=== PATIENT | female | born 1940 | race Caucasian/White ===

== ENCOUNTER 2017-11-11 09:00 | Outpatient (RCR) | payer OTHER, MEDICAID, SELFPAY ==
--- NOTE | 2017-09-27 11:06 | PT.OIE ---
Current Diagnoses Pain in left shoulder (09/26/17) Past Medical History (Last Updated 09/26/17 @ 10:28 by Tona Headley, PT) Arthritis (Acute) HTN (hypertension) (Acute) Seizure (Acute) Provider Visit Care Team Role Provider Type Gwendolyn Esipnosa PA-C Attending Provider Advanced Practioner Clinician Family Provider Primary Care Provider Specialty: Medical Address: [address] [place] [address], [facility] Email: [email or web address] Physical Therapy Initial Evaluation PT-OP-A Visit Information Start: 09/26/17 08:12 Freq: Status: Active Protocol: Document 09/26/17 09:08 [facility] (Rec: 09/27/17 11:06 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 (Rec: 09/27/17 11:06 [facility] [id number]) Current Condition History of Current Condition Onset Date End of Jun 2017 Current Complaints L shoulder pain History of Current Condition Pt reports shoulder pain starting after vacation at the end of Jun. She thinks it may have been caused from pulling her luggage, but is unsure. Pt reports it has improved recently, but still has some pain. Reports she has R knee soreness that has progressed buttock pain that was sharp for a while and R foot feels asleep. Imaging was done and was told it is a pinched nerve. Pt reports the pain has been okay, but numbness is still present. Prior Treatments and Tests X-ray revealing arthrtis per pt. Future Testing and Treatments Planned Possible ortho follow up for RLE. Treatment Goals Patient/Caregiver Goals Dec pain Prior Functional Status Baseline Function- ADL's Independent Baseline Function- Mobility Independent Current Functional Impairments (Reported) Functional Limitations- Other Difficulty sleeping on L shoulder PT-OP-C Subjective Start: 09/26/17 08:12 Freq: Status: Active Protocol: Document 09/26/17 09:08 [facility] (Rec: 09/27/17 11:06 [facility] [id number]) Patient Questionnaires Quick Dash- Upper Extremity Quick Dash UE Score 20.45 Quick Dash UE Impairment 20 to 39% Impaired (Score 20- 39) OP-PT Pain Assessment Pain Assessment Grid Paper Pain Assessment Grid Completed Yes Location Left Shoulder Intensity 2 Scale Used Numeric (1 - 10) Description With Movement Description- Other Annoying Frequency Intermittent Pain Duration during movement Pain Aggravating Factors Lifting Other Pain Aggravating Factors sleeping on it, lifting it to side Other Pain Alleviating Factors stop movement, used ice in past Home Pain Medication Use Pain Medications Used No PT-OP-J Posture/Palpation/Skin Start: 09/26/17 08:12 Freq: Status: Active Protocol: Document 09/26/17 09:08 [facility] (Rec: 09/26/17 10:27 [facility] [id number]) Posture Evaluation [facility] Postural Classification System [facility] Postural Classifications Anterior/Posterior Elbow Flexion Test 2 Comments Posture Comments Fwd head shoulders mild Palpation Assessment Location One Palpation Location L shoulder Palpation Findings Soft Tissue Tightness Tenderness Palpation Details UT, pec, LS, infraspinatus, teres PT-OP-K Range of Motion Start: 09/26/17 08:12 Freq: Status: Active Protocol: Document 09/26/17 09:08 [facility] (Rec: 09/26/17 10:27 [facility] [id number]) Shoulder Goniometric Range of Motion Shoulder Measured in Degrees Right Active Testing Position standing Flexion 170 Extension 60 Abduction 180 External Rotation at 90 degrees 90 Abduction Internal Rotation 70 Internal Rotation Behind Back (text) L2 Left Active Testing Position standing Flexion 151 Extension 60 Abduction 170 External Rotation at 90 degrees 70 Abduction Internal Rotation Behind Back (text) L2 PT-OP-L Special Tests Start: 09/26/17 08:12 Freq: Status: Active Protocol: Document 09/26/17 09:08 [facility] (Rec: 09/26/17 10:27 [facility] [id number]) Special Tests Neural Special Tests- Upper Body Other- 1 Test Results radial, median, ulnar n tention tests Neg (B) Comments R abd n tension 145, L 120 Other Special Tests Special Tests AC joint & impingment testing neg (B) & all tests neg on R; L (+) empty can, speeds, O' briens PT-OP-M Strength Start: 09/26/17 08:12 Freq: Status: Active Protocol: Document 09/26/17 09:08 [facility] (Rec: 09/26/17 10:27 [facility] [id number]) Shoulder Strength Shoulder Manual Muscle Testing Right Flexion 4 Good Extension 5 Normal Abduction (C5) 4- Good- External Rotation 4- Good- Internal Rotation 4 Good Comments pain with Abd, feels weak with RUE Left Flexion 4 Good Extension 4+ Good+ Abduction (C5) 4- Good- External Rotation 4- Good- Internal Rotation 5 Normal Comments pain Abd & ER PT-OP-Q Treatments Start: 09/26/17 08:12 Freq: Status: Active Protocol: Document 09/26/17 09:08 [facility] (Rec: 09/26/17 10:27 [facility] [id number]) Therapeutic Exercises Standing Exercises 3 Standing Exercise Name flex w/ retraction Side bilateral Reps/Minutes 15 2 Standing Exercise Name (B) ER Resistance L1 Reps/Minutes 15 1 Standing Exercise Name Shoulder ext Side bilateral Resistance L2 Reps/Minutes 15 PT-OP-T Assessment and Plan Start: 09/26/17 08:12 Freq: Status: Active Protocol: Document 09/26/17 09:08 [facility] (Rec: 09/27/17 11:06 [facility] [id number]) Physical Therapy Assessment Rehab Potential Rehabilitation Potential Excellent Evaluation Complexity Number of Personal Factors/Comorbidities 3 or More Number of Body Systems Impaired 3 Clinical Presentation at Evaluation Stable Impairments Impairments Pain Posture ROM Strength Goals Three Impairment pain Assisted Goal (LTG) 0/10 pain LTG Duration by 11/26/17 Two Impairment Strength Delivery Route Driver Goal (LTG) 5/5 strength BUEs to allow pt to do all normal activities without pain. LTG Duration by 11/26/17 One Impairment ROM Short Term Goal (STG) Pt will have normal ROM without pain to allow participation in daily tasks without pain. STG Duration By 10/28/17 Assessment Summary Assessment Pt presents with mild tendinosis and weakness from recent bout of pain. Pt is likely to continue to improve with strengthening & stretching exercises. Physical Therapy Plan Frequency and Duration Frequency of Treatment 2x/Week Duration of Treatment 2 months Plan of Care Start Date 09/26/17 Plan of Care End Date 11/26/17 Therapeutic Interventions Therapeutic Interventions Aquatic Therapy Home Exercise Program Joint Mobilizations Manual Therapy Patient/Caregiver Education Soft Tissue Mobilization Taping Therapeutic Exercises Modalities Cold Pack/Ice Massage Electric Stimulation Ultrasound Next Visit Focus/Plan Next Visit Plan Tband strengthening exercises & joint mobs Provider Signature Date
--- NOTE | 2017-09-27 11:07 | PT.OPPOC ---
Current Diagnoses Pain in left shoulder (09/26/17) Provider Visit Care Team Role Provider Type Gwendolyn Espinosa PA-C Attending Provider Advanced Practioner Clinician Family Provider Primary Care Provider Specialty: Medical Address: [address] [place] [address], [id number] Email: [email or web address] Plan Of Care PT-OP-T Assessment and Plan Start: 09/26/17 08:12 Freq: Status: Active Protocol: Document 09/26/17 09:08 [facility] (Rec: 09/27/17 11:06 [facility] [id number]) Physical Therapy Assessment Rehab Potential Rehabilitation Potential Excellent Evaluation Complexity Number of Personal Factors/Comorbidities 3 or More Number of Body Systems Impaired 3 Clinical Presentation at Evaluation Stable Impairments Impairments Pain Posture ROM Strength Goals Three Impairment pain Correction Goal (LTG) 0/10 pain LTG Duration by 11/26/17 Two Impairment Strength Correction Goal (LTG) 5/5 strength BUEs to allow pt to do all normal activities without pain. LTG Duration by 11/26/17 One Impairment ROM Short Term Goal (STG) Pt will have normal ROM without pain to allow participation in daily tasks without pain. STG Duration By 10/28/17 Assessment Summary Assessment Pt presents with mild tendinosis and weakness from recent bout of pain. Pt is likely to continue to improve with strengthening & stretching exercises. Physical Therapy Plan Frequency and Duration Frequency of Treatment 2x/Week Duration of Treatment 2 months Plan of Care Start Date 09/26/17 Plan of Care End Date 11/26/17 Therapeutic Interventions Therapeutic Interventions Aquatic Therapy Home Exercise Program Joint Mobilizations Manual Therapy Patient/Caregiver Education Soft Tissue Mobilization Taping Therapeutic Exercises Modalities Cold Pack/Ice Massage Electric Stimulation Ultrasound Next Visit Focus/Plan Next Visit Plan Tband strengthening exercises & joint mobs Plan of Care Dates Plan of Care Start Date 09/26/17 Plan of Care End Date 11/26/17 Please Sign and Return: I have reviewed this Plan of Care and certify that the skilled therapy services above are required to meet the patient???s needs. Physician Signature Date Printed Name and Credentials
--- NOTE | 2017-10-01 11:18 | PT.OTN ---
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 She thinks it may have been caused from pulling her luggage, but is unsure. Pt reports it has improved recently, but still has some pain. Reports she has R knee soreness that has progressed buttock pain that was sharp for a while and R foot feels asleep. Imaging was done and was told it is a pinched nerve. Pt reports the pain has been okay, but numbness is still present. Prior Treatments and Tests X-ray revealing arthrtis per pt. Future Testing and Treatments Planned Possible ortho follow up for RLE. Treatment Goals Patient/Caregiver Goals Dec pain Prior Functional Status Baseline Function- ADL's Independent Baseline Function- Mobility Independent Current Functional Impairments (Reported) Functional Limitations- Other Difficulty sleeping on L shoulder PT-OP-C Subjective Start: 09/26/17 08:12 Freq: Status: Active Protocol: Document 10/01/17 10:31 [facility] (Rec: 10/01/17 11:12 [facility] [id number]) OP-PT Subjective Patient Comments Patient Comments Reports compliance with HEP except for this weekend. PT-OP-J Posture/Palpation/Skin Start: 09/26/17 08:12 Freq: Status: Active Protocol: Document 09/26/17 09:08 [facility] (Rec: 09/26/17 10:27 [facility] [id number]) Posture Evaluation [facility] Postural Classification System [facility] Postural Classifications Anterior/Posterior Elbow Flexion Test 2 Comments Posture Comments Fwd head shoulders mild Palpation Assessment Location One Palpation Location L shoulder Palpation Findings Soft Tissue Tightness Tenderness Palpation Details UT, pec, LS, infraspinatus, teres PT-OP-K Range of Motion Start: 09/26/17 08:12 Freq: Status: Active Protocol: Document 09/26/17 09:08 [facility] (Rec: 09/26/17 10:27 [facility] [id number]) Shoulder Goniometric Range of Motion Shoulder Measured in Degrees Right Active Testing Position standing Flexion 170 Extension 60 Abduction 180 External Rotation at 90 degrees 90 Abduction Internal Rotation 70 Internal Rotation Behind Back (text) L2 Left Active Testing Position standing Flexion 151 Extension 60 Abduction 170 External Rotation at 90 degrees 70 Abduction Internal Rotation Behind Back (text) L2 PT-OP-L Special Tests Start: 09/26/17 08:12 Freq: Status: Active Protocol: Document 09/26/17 09:08 [facility] (Rec: 09/26/17 10:27 [facility] [id number]) Special Tests Neural Special Tests- Upper Body Other- 1 Test Results radial, median, ulnar n tention tests Neg (B) Comments R abd n tension 145, L 120 Other Special Tests Special Tests AC joint & impingment testing neg (B) & all tests neg on R; L (+) empty can, speeds, O' briens PT-OP-M Strength Start: 09/26/17 08:12 Freq: Status: Active Protocol: Document 09/26/17 09:08 [facility] (Rec: 09/26/17 10:27 [facility] [id number]) Shoulder Strength Shoulder Manual Muscle Testing Right Flexion 4 Good Extension 5 Normal Abduction (C5) 4- Good- External Rotation 4- Good- Internal Rotation 4 Good Comments pain with Abd, feels weak with RUE Left Flexion 4 Good Extension 4+ Good+ Abduction (C5) 4- Good- External Rotation 4- Good- Internal Rotation 5 Normal Comments pain Abd & ER PT-OP-Q Treatments Start: 09/26/17 08:12 Freq: Status: Active Protocol: Document 10/01/17 10:31 [facility] (Rec: 10/01/17 10:49 [facility] [id number]) Therapeutic Exercises Prone Exercises 2 Prone Exercise Name scaption on tball Resistance 1# Reps/Minutes 2x10 1 Prone Exercise Name Habd on tball Resistance 1# Reps/Minutes 2x10 Standing Exercises 5 Standing Exercise Name LS stretch Side bilateral 4 Standing Exercise Name UT stretch Reps/Minutes 30 sec holds 3 Standing Exercise Name flex w/ retraction Side bilateral Reps/Minutes 2x10 2 Standing Exercise Name (B) ER Resistance L1 Reps/Minutes 2x10 1 Standing Exercise Name Shoulder ext Side bilateral Resistance L2 Reps/Minutes 2x10 Manual Therapy Treatment Soft Tissue Mobilization 1 Body Location UT/LS Mobilization Type Rolling Intensity/Depth Moderate Body Position Supine Joint Mobilizations 2 Joint GH Direction post, inf & distraction Grade III Body Position Supine 1 Joint AC Direction ventral Grade II PT-OP-T Assessment and Plan Start: 09/26/17 08:12 Freq: Status: Active Protocol: Document 10/01/17 10:31 [facility] (Rec: 10/01/17 10:49 [facility] [id number]) Physical Therapy Assessment Assessment Summary Assessment Min cueing w/HEP and required cueing for exercises to maintain neutral scap positioning. Physical Therapy Plan Frequency and Duration Frequency of Treatment 2x/Week Duration of Treatment 2 months Plan of Care Start Date 09/26/17 Plan of Care End Date 11/26/17 Next Visit Focus/Plan Next Visit Plan Review new exercises
--- NOTE | 2017-10-10 10:25 | PT.OTN ---
Current Diagnoses Pain in left shoulder (10/10/17) Physical Therapy Treatment Note PT-OP-A Visit Information Start: 09/26/17 08:12 Freq: Status: Active Protocol: Document 10/10/17 09:40 [facility] (Rec: 10/10/17 10:24 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 (Rec: 09/27/17 11:06 [facility] [id number]) Current Condition History of Current Condition Onset Date End of Jun 2017 Current Complaints L shoulder pain History of Current Condition Pt reports shoulder pain starting after vacation at the end of Jun. She thinks it may have been caused from pulling her luggage, but is unsure. Pt reports it has improved recently, but still has some pain. Reports she has R knee soreness that has progressed buttock pain that was sharp for a while and R foot feels asleep. Imaging was done and was told it is a pinched nerve. Pt reports the pain has been okay, but numbness is still present. Prior Treatments and Tests X-ray revealing arthrtis per pt. Future Testing and Treatments Planned Possible ortho follow up for RLE. Treatment Goals Patient/Caregiver Goals Dec pain Prior Functional Status Baseline Function- ADL's Independent Baseline Function- Mobility Independent Current Functional Impairments (Reported) Functional Limitations- Other Difficulty sleeping on L shoulder PT-OP-C Subjective Start: 09/26/17 08:12 Freq: Status: Active Protocol: Document 10/10/17 09:40 [facility] (Rec: 10/10/17 10:24 [facility] [id number]) OP-PT Subjective Patient Comments Patient Comments Feeling better with massage. PT-OP-J Posture/Palpation/Skin Start: 09/26/17 08:12 Freq: Status: Active Protocol: Document 09/26/17 09:08 [facility] (Rec: 09/26/17 10:27 [facility] [id number]) Posture Evaluation [facility] Postural Classification System [facility] Postural Classifications Anterior/Posterior Elbow Flexion Test 2 Comments Posture Comments Fwd head shoulders mild Palpation Assessment Location One Palpation Location L shoulder Palpation Findings Soft Tissue Tightness Tenderness Palpation Details UT, pec, LS, infraspinatus, teres PT-OP-K Range of Motion Start: 09/26/17 08:12 Freq: Status: Active Protocol: Document 09/26/17 09:08 [facility] (Rec: 09/26/17 10:27 [facility] [id number]) Shoulder Goniometric Range of Motion Shoulder Measured in Degrees Right Active Testing Position standing Flexion 170 Extension 60 Abduction 180 External Rotation at 90 degrees 90 Abduction Internal Rotation 70 Internal Rotation Behind Back (text) L2 Left Active Testing Position standing Flexion 151 Extension 60 Abduction 170 External Rotation at 90 degrees 70 Abduction Internal Rotation Behind Back (text) L2 PT-OP-L Special Tests Start: 09/26/17 08:12 Freq: Status: Active Protocol: Document 09/26/17 09:08 [facility] (Rec: 09/26/17 10:27 [facility] [id number]) Special Tests Neural Special Tests- Upper Body Other- 1 Test Results radial, median, ulnar n tention tests Neg (B) Comments R abd n tension 145, L 120 Other Special Tests Special Tests AC joint & impingment testing neg (B) & all tests neg on R; L (+) empty can, speeds, O' briens PT-OP-M Strength Start: 09/26/17 08:12 Freq: Status: Active Protocol: Document 09/26/17 09:08 [facility] (Rec: 09/26/17 10:27 [facility] [id number]) Shoulder Strength Shoulder Manual Muscle Testing Right Flexion 4 Good Extension 5 Normal Abduction (C5) 4- Good- External Rotation 4- Good- Internal Rotation 4 Good Comments pain with Abd, feels weak with RUE Left Flexion 4 Good Extension 4+ Good+ Abduction (C5) 4- Good- External Rotation 4- Good- Internal Rotation 5 Normal Comments pain Abd & ER PT-OP-Q Treatments Start: 09/26/17 08:12 Freq: Status: Active Protocol: Document 10/10/17 09:40 [facility] (Rec: 10/10/17 10:24 [facility] [id number]) Therapeutic Exercises Prone Exercises 3 Prone Exercise Name 90/90 ER tball Resistance 1# Reps/Minutes 2x10 2 Prone Exercise Name scaption on tball Resistance 1# Reps/Minutes 2x10 1 Prone Exercise Name Habd on tball Resistance 1# Reps/Minutes 2x10 Standing Exercises 6 Standing Exercise Name Shoulder IR Side left Resistance L2 Reps/Minutes 2x10 5 Standing Exercise Name LS stretch Side bilateral 4 Standing Exercise Name UT stretch Reps/Minutes 30 sec holds Manual Therapy Treatment Soft Tissue Mobilization 1 Body Location UT/LS Mobilization Type Rolling Intensity/Depth Moderate Body Position Supine Joint Mobilizations 2 Joint GH Direction post, inf & distraction Grade III Body Position Supine 1 Joint AC Direction ventral Grade II PT-OP-T Assessment and Plan Start: 09/26/17 08:12 Freq: Status: Active Protocol: Document 10/10/17 09:40 [facility] (Rec: 10/10/17 10:24 [facility] [id number]) Physical Therapy Assessment Assessment Summary Assessment Pt did well with exercises and required min cueing. Added new exercises from last session to HEP. Physical Therapy Plan Frequency and Duration Frequency of Treatment 2x/Week Duration of Treatment 2 months Plan of Care Start Date 09/26/17 Plan of Care End Date 11/26/17 Next Visit Focus/Plan Next Visit Plan Cont to work on full ROM & abd without pain Please Sign and Return: I have reviewed this Plan of Care and certify that the skilled therapy services above are required to meet the patient???s needs. Physician Signature Date Printed Name and Credentials Clinical Instructor Signature Printed Name and Credentials
--- NOTE | 2017-10-15 13:43 | PT.OTN ---
Current Diagnoses Pain in left shoulder (10/15/17) Physical Therapy Treatment Note PT-OP-A Visit Information Start: 09/26/17 08:12 Freq: Status: Active Protocol: Document 10/15/17 13:02 [facility] (Rec: 10/15/17 13:43 [facility] [id number]) Out-Patient Physical Therapy Visit Information Visit Information Visit Type Treatment Note Visit Note 34PT visit this year Visit Start Time 13:00 Visit Stop Time 13:40 Total Visit Minutes 40 Visit Number 4 Gcode Number of POKER DEALER Visits 0 PT-OP-B Current Condition Start: 09/26/17 08:12 Freq: Status: Active Protocol: Document 09/26/17 09:08 [facility] (Rec: 09/27/17 11:06 [facility] [id number]) Current Condition History of Current Condition Onset Date End of Jun 2017 Current Complaints L shoulder pain History of Current Condition Pt reports shoulder pain starting after vacation at the end of Jun. She thinks it may have been caused from pulling her luggage, but is unsure. Pt reports it has improved recently, but still has some pain. Reports she has R knee soreness that has progressed buttock pain that was sharp for a while and R foot feels asleep. Imaging was done and was told it is a pinched nerve. Pt reports the pain has been okay, but numbness is still present. Prior Treatments and Tests X-ray revealing arthrtis per pt. Future Testing and Treatments Planned Possible ortho follow up for RLE. Treatment Goals Patient/Caregiver Goals Dec pain Prior Functional Status Baseline Function- ADL's Independent Baseline Function- Mobility Independent Current Functional Impairments (Reported) Functional Limitations- Other Difficulty sleeping on L shoulder PT-OP-C Subjective Start: 09/26/17 08:12 Freq: Status: Active Protocol: Document 10/15/17 13:02 [facility] (Rec: 10/15/17 13:43 [facility] [id number]) OP-PT Subjective Patient Comments Patient Comments Overall feeling better. Notes pain is less. Did not do exercises this weekend. PT-OP-J Posture/Palpation/Skin Start: 09/26/17 08:12 Freq: Status: Active Protocol: Document 09/26/17 09:08 [facility] (Rec: 09/26/17 10:27 [facility] [id number]) Posture Evaluation Lorean Postural Classification System [place] Postural Classifications Anterior/Posterior Elbow Flexion Test 2 Comments Posture Comments Fwd head shoulders mild Palpation Assessment Location One Palpation Location L shoulder Palpation Findings Soft Tissue Tightness Tenderness Palpation Details UT, pec, LS, infraspinatus, teres PT-OP-K Range of Motion Start: 09/26/17 08:12 Freq: Status: Active Protocol: Document 09/26/17 09:08 [facility] (Rec: 09/26/17 10:27 [facility] [id number]) Shoulder Goniometric Range of Motion Shoulder Measured in Degrees Right Active Testing Position standing Flexion 170 Extension 60 Abduction 180 External Rotation at 90 degrees 90 Abduction Internal Rotation 70 Internal Rotation Behind Back (text) L2 Left Active Testing Position standing Flexion 151 Extension 60 Abduction 170 External Rotation at 90 degrees 70 Abduction Internal Rotation Behind Back (text) L2 PT-OP-L Special Tests Start: 09/26/17 08:12 Freq: Status: Active Protocol: Document 09/26/17 09:08 [facility] (Rec: 09/26/17 10:27 [facility] [id number]) Special Tests Neural Special Tests- Upper Body Other- 1 Test Results radial, median, ulnar n tention tests Neg (B) Comments R abd n tension 145, L 120 Other Special Tests Special Tests AC joint & impingment testing neg (B) & all tests neg on R; L (+) empty can, speeds, O' briens PT-OP-M Strength Start: 09/26/17 08:12 Freq: Status: Active Protocol: Document 09/26/17 09:08 [facility] (Rec: 09/26/17 10:27 [facility] [id number]) Shoulder Strength Shoulder Manual Muscle Testing Right Flexion 4 Good Extension 5 Normal Abduction (C5) 4- Good- External Rotation 4- Good- Internal Rotation 4 Good Comments pain with Abd, feels weak with RUE Left Flexion 4 Good Extension 4+ Good+ Abduction (C5) 4- Good- External Rotation 4- Good- Internal Rotation 5 Normal Comments pain Abd & ER PT-OP-Q Treatments Start: 09/26/17 08:12 Freq: Status: Active Protocol: Document 10/15/17 13:02 [facility] (Rec: 10/15/17 13:43 [facility] [id number]) Therapeutic Exercises Prone Exercises 3 Prone Exercise Name 90/90 ER tball Resistance 1# Reps/Minutes 2x10 2 Prone Exercise Name scaption on tball Resistance 1# Reps/Minutes 2x10 1 Prone Exercise Name Habd on tball Resistance 2# Reps/Minutes 2x10 Sidelying Exercises 1 Sidelying Exercise Name abd Side left Resistance 1# Reps/Minutes 20 Standing Exercises 7 Standing Exercise Name abd Resistance L1 Reps/Minutes 15 B 5 Standing Exercise Name LS stretch Side bilateral 4 Standing Exercise Name UT stretch Reps/Minutes 30 sec holds 3 Standing Exercise Name flex w/ retraction Side bilateral Reps/Minutes 10 2 Standing Exercise Name (B) ER Resistance L1 Reps/Minutes 2x10 Manual Therapy Treatment Soft Tissue Mobilization 1 Body Location UT/LS Mobilization Type Rolling Intensity/Depth Moderate Body Position Supine Joint Mobilizations 2 Joint GH Direction post, inf & distraction Grade III Body Position Supine PT-OP-T Assessment and Plan Start: 09/26/17 08:12 Freq: Status: Active Protocol: Document 10/15/17 13:02 [facility] (Rec: 10/15/17 13:43 [facility] [id number]) Physical Therapy Assessment Goals Three Impairment pain Marine Fitter Goal (LTG) 0/10 pain LTG Duration by 11/26/17 Two Impairment Strength Fpc Goal (LTG) 5/5 strength BUEs to allow pt to do all normal activities without pain. LTG Duration by 11/26/17 One Impairment ROM Short Term Goal (STG) Pt will have normal ROM without pain to allow participation in daily tasks without pain. STG Duration By 10/28/17 Assessment Summary Assessment Improved PROM to WNL after manual. Cont tightness & elevation of L sided shoulder girdle. Some pain when trying 2 lbs for s.l abd but no pain with 1 # and cueing. Physical Therapy Plan Frequency and Duration Frequency of Treatment 2x/Week Duration of Treatment 2 months Plan of Care Start Date 09/26/17 Plan of Care End Date 11/26/17 Next Visit Focus/Plan Next Note Type Treatment Note Next Visit Plan Cont to work on full ROM & abd without pain Please Sign and Return: I have reviewed this Plan of Care and certify that the skilled therapy services above are required to meet the patient???s needs. Physician Signature Date Printed Name and Credentials Clinical Instructor Signature Printed Name and Credentials
--- NOTE | 2017-10-17 15:12 | PT.OTN ---
Current Diagnoses Pain in left shoulder (10/17/17) Physical Therapy Treatment Note PT-OP-A Visit Information Start: 09/26/17 08:12 Freq: Status: Active Protocol: Document 10/17/17 14:32 [facility] (Rec: 10/17/17 15:12 [facility] [id number]) Out-Patient Physical Therapy Visit Information Visit Information Visit Type Treatment Note Visit Note 5 PT visit this year Visit Start Time 14:30 Visit Stop Time 15:10 Total Visit Minutes 40 Visit Number 5 Gcode Number of COUNCIL MEMBER Visits 0 PT-OP-B Current Condition Start: 09/26/17 08:12 Freq: Status: Active Protocol: Document 09/26/17 09:08 [facility] (Rec: 09/27/17 11:06 [facility] [id number]) Current Condition History of Current Condition Onset Date End of Jun 2017 Current Complaints L shoulder pain History of Current Condition Pt reports shoulder pain starting after vacation at the end of Jun. She thinks it may have been caused from pulling her luggage, but is unsure. Pt reports it has improved recently, but still has some pain. Reports she has R knee soreness that has progressed buttock pain that was sharp for a while and R foot feels asleep. Imaging was done and was told it is a pinched nerve. Pt reports the pain has been okay, but numbness is still present. Prior Treatments and Tests X-ray revealing arthrtis per pt. Future Testing and Treatments Planned Possible ortho follow up for RLE. Treatment Goals Patient/Caregiver Goals Dec pain Prior Functional Status Baseline Function- ADL's Independent Baseline Function- Mobility Independent Current Functional Impairments (Reported) Functional Limitations- Other Difficulty sleeping on L shoulder PT-OP-C Subjective Start: 09/26/17 08:12 Freq: Status: Active Protocol: Document 10/17/17 14:32 [facility] (Rec: 10/17/17 15:12 [facility] [id number]) OP-PT Subjective Patient Comments Patient Comments Compliance with HEP since lasst visit PT-OP-J Posture/Palpation/Skin Start: 09/26/17 08:12 Freq: Status: Active Protocol: Document 09/26/17 09:08 [facility] (Rec: 09/26/17 10:27 [facility] [id number]) Posture Evaluation Lorena Postural Classification System [place]orena Postural Classifications Anterior/Posterior Elbow Flexion Test 2 Comments Posture Comments Fwd head shoulders mild Palpation Assessment Location One Palpation Location L shoulder Palpation Findings Soft Tissue Tightness Tenderness Palpation Details UT, pec, LS, infraspinatus, teres PT-OP-K Range of Motion Start: 09/26/17 08:12 Freq: Status: Active Protocol: Document 09/26/17 09:08 [facility] (Rec: 09/26/17 10:27 [facility] [id number]) Shoulder Goniometric Range of Motion Shoulder Measured in Degrees Right Active Testing Position standing Flexion 170 Extension 60 Abduction 180 External Rotation at 90 degrees 90 Abduction Internal Rotation 70 Internal Rotation Behind Back (text) L2 Left Active Testing Position standing Flexion 151 Extension 60 Abduction 170 External Rotation at 90 degrees 70 Abduction Internal Rotation Behind Back (text) L2 PT-OP-L Special Tests Start: 09/26/17 08:12 Freq: Status: Active Protocol: Document 09/26/17 09:08 [facility] (Rec: 09/26/17 10:27 [facility] [id number]) Special Tests Neural Special Tests- Upper Body Other- 1 Test Results radial, median, ulnar n tention tests Neg (B) Comments R abd n tension 145, L 120 Other Special Tests Special Tests AC joint & impingment testing neg (B) & all tests neg on R; L (+) empty can, speeds, O' briens PT-OP-M Strength Start: 09/26/17 08:12 Freq: Status: Active Protocol: Document 09/26/17 09:08 [facility] (Rec: 09/26/17 10:27 [facility] [id number]) Shoulder Strength Shoulder Manual Muscle Testing Right Flexion 4 Good Extension 5 Normal Abduction (C5) 4- Good- External Rotation 4- Good- Internal Rotation 4 Good Comments pain with Abd, feels weak with RUE Left Flexion 4 Good Extension 4+ Good+ Abduction (C5) 4- Good- External Rotation 4- Good- Internal Rotation 5 Normal Comments pain Abd & ER PT-OP-Q Treatments Start: 09/26/17 08:12 Freq: Status: Active Protocol: Document 10/17/17 14:32 [facility] (Rec: 10/17/17 15:12 [facility] [id number]) Therapeutic Exercises Prone Exercises 3 Prone Exercise Name 90/90 ER tball Resistance 1# Reps/Minutes 2x10 2 Prone Exercise Name scaption on tball Resistance 1# Reps/Minutes 2x10 1 Prone Exercise Name Habd on tball Resistance 2# Reps/Minutes 2x10 Sidelying Exercises 1 Sidelying Exercise Name abd Side left Resistance 2# Reps/Minutes 20 Standing Exercises 7 Standing Exercise Name abd Resistance L1 Reps/Minutes 20 3 Standing Exercise Name flex w/ retraction Side bilateral Reps/Minutes 20 2 Standing Exercise Name (B) ER Resistance L1 Reps/Minutes 2x10 Manual Therapy Treatment Soft Tissue Mobilization 1 Body Location UT/LS/scalenes & pec Mobilization Type Rolling Intensity/Depth Moderate Body Position Supine Joint Mobilizations 2 Joint GH Direction post, inf & distraction Grade III Body Position Supine Manual Techniques 1 Type flex & abd stretch PT-OP-T Assessment and Plan Start: 09/26/17 08:12 Freq: Status: Active Protocol: Document 10/17/17 14:32 [facility] (Rec: 10/17/17 15:12 [facility] [id number]) Physical Therapy Assessment Assessment Summary Assessment Cont to improve with strength & improving scapulohumeral mechanics. Physical Therapy Plan Frequency and Duration Frequency of Treatment 2x/Week Duration of Treatment 2 months Plan of Care Start Date 09/26/17 Plan of Care End Date 11/26/17 Next Visit Focus/Plan Next Note Type Treatment Note Next Visit Plan Cont to work on full ROM & abd without pain Please Sign and Return: I have reviewed this Plan of Care and certify that the skilled therapy services above are required to meet the patient?s needs. Physician Signature Date Printed Name and Credentials Clinical Instructor Signature Printed Name and Credentials
--- NOTE | 2017-10-22 11:15 | PT.OTN ---
Current Diagnoses Pain in left shoulder (10/22/17) Physical Therapy Treatment Note PT-OP-A Visit Information Start: 09/26/17 08:12 Freq: Status: Active Protocol: Document 10/22/17 10:30 [facility] (Rec: 10/22/17 11:15 [facility] [id number]) Out-Patient Physical Therapy Visit Information Visit Information Visit Type Treatment Note Visit Note 6 PT visit this year Visit Start Time 10:30 Visit Stop Time 11:10 Total Visit Minutes 40 Visit Number 6 Gcode Number of ASSET CARD CLERK Visits 0 PT-OP-B Current Condition Start: 09/26/17 08:12 Freq: Status: Active Protocol: Document 09/26/17 09:08 [facility] (Rec: 09/27/17 11:06 [facility] [id number]) Current Condition History of Current Condition Onset Date End of Jun 2017 Current Complaints L shoulder pain History of Current Condition Pt reports shoulder pain starting after vacation at the end of Jun. She thinks it may have been caused from pulling her luggage, but is unsure. Pt reports it has improved recently, but still has some pain. Reports she has R knee soreness that has progressed buttock pain that was sharp for a while and R foot feels asleep. Imaging was done and was told it is a pinched nerve. Pt reports the pain has been okay, but numbness is still present. Prior Treatments and Tests X-ray revealing arthrtis per pt. Future Testing and Treatments Planned Possible ortho follow up for RLE. Treatment Goals Patient/Caregiver Goals Dec pain Prior Functional Status Baseline Function- ADL's Independent Baseline Function- Mobility Independent Current Functional Impairments (Reported) Functional Limitations- Other Difficulty sleeping on L shoulder PT-OP-C Subjective Start: 09/26/17 08:12 Freq: Status: Active Protocol: Document 10/22/17 10:30 [facility] (Rec: 10/22/17 11:15 [facility] [id number]) OP-PT Subjective Patient Comments Patient Comments Reports soreness yesterday w/ abd after exercises. Notes the soreness seems to stay there. PT-OP-J Posture/Palpation/Skin Start: 09/26/17 08:12 Freq: Status: Active Protocol: Document 09/26/17 09:08 [facility] (Rec: 09/26/17 10:27 [facility] [id number]) Posture Evaluation [place]orena Postural Classification System [place] Postural Classifications Anterior/Posterior Elbow Flexion Test 2 Comments Posture Comments Fwd head shoulders mild Palpation Assessment Location One Palpation Location L shoulder Palpation Findings Soft Tissue Tightness Tenderness Palpation Details UT, pec, LS, infraspinatus, teres PT-OP-K Range of Motion Start: 09/26/17 08:12 Freq: Status: Active Protocol: Document 09/26/17 09:08 [facility] (Rec: 09/26/17 10:27 [facility] [id number]) Shoulder Goniometric Range of Motion Shoulder Measured in Degrees Right Active Testing Position standing Flexion 170 Extension 60 Abduction 180 External Rotation at 90 degrees 90 Abduction Internal Rotation 70 Internal Rotation Behind Back (text) L2 Left Active Testing Position standing Flexion 151 Extension 60 Abduction 170 External Rotation at 90 degrees 70 Abduction Internal Rotation Behind Back (text) L2 PT-OP-L Special Tests Start: 09/26/17 08:12 Freq: Status: Active Protocol: Document 09/26/17 09:08 [facility] (Rec: 09/26/17 10:27 [facility] [id number]) Special Tests Neural Special Tests- Upper Body Other- 1 Test Results radial, median, ulnar n tention tests Neg (B) Comments R abd n tension 145, L 120 Other Special Tests Special Tests AC joint & impingment testing neg (B) & all tests neg on R; L (+) empty can, speeds, O' briens PT-OP-M Strength Start: 09/26/17 08:12 Freq: Status: Active Protocol: Document 09/26/17 09:08 [facility] (Rec: 09/26/17 10:27 [facility] [id number]) Shoulder Strength Shoulder Manual Muscle Testing Right Flexion 4 Good Extension 5 Normal Abduction (C5) 4- Good- External Rotation 4- Good- Internal Rotation 4 Good Comments pain with Abd, feels weak with RUE Left Flexion 4 Good Extension 4+ Good+ Abduction (C5) 4- Good- External Rotation 4- Good- Internal Rotation 5 Normal Comments pain Abd & ER PT-OP-Q Treatments Start: 09/26/17 08:12 Freq: Status: Active Protocol: Document 10/22/17 10:30 [facility] (Rec: 10/22/17 11:15 [facility] [id number]) Therapeutic Exercises Prone Exercises 3 Prone Exercise Name 90/90 ER tball Resistance 1# Reps/Minutes 2x10 2 Prone Exercise Name scaption on tball Resistance 1# Reps/Minutes 2x10 1 Prone Exercise Name Habd on tball Resistance 2# Reps/Minutes 2x10 Sidelying Exercises 2 Sidelying Exercise Name ER Side left Resistance 1# Reps/Minutes 20 1 Sidelying Exercise Name abd Side left Resistance 2# to 1 to 0 d/t pain Reps/Minutes 20 Standing Exercises 8 Standing Exercise Name flex Side bilateral Resistance L1 Reps/Minutes 20 7 Standing Exercise Name abd Resistance L1 Reps/Minutes 20 Comments w/mirror 3 Standing Exercise Name flex w/ retraction Side bilateral Resistance L1 Reps/Minutes 20 2 Standing Exercise Name (B) ER Resistance L1 Reps/Minutes 2x10 Manual Therapy Treatment Soft Tissue Mobilization 1 Body Location UT/LS/scalenes & pec Mobilization Type Rolling Intensity/Depth Moderate Body Position Supine Joint Mobilizations 2 Joint GH Direction post, inf & distraction Grade III Body Position Supine Manual Techniques 2 Type Inf glide w/humeral faciliation for abd PT-OP-T Assessment and Plan Start: 09/26/17 08:12 Freq: Status: Active Protocol: Document 10/22/17 10:30 [facility] (Rec: 10/22/17 11:15 [facility] [id number]) Physical Therapy Assessment Assessment Summary Assessment Pt cont to have limits of strength into abd, flex & ER. Difficulty with GH mechanics w /abd. Physical Therapy Plan Frequency and Duration Frequency of Treatment 2x/Week Duration of Treatment 2 months Plan of Care Start Date 09/26/17 Plan of Care End Date 11/26/17 Next Visit Focus/Plan Next Note Type Treatment Note Next Visit Plan Cont to work on full ROM & abd without pain Please Sign and Return: I have reviewed this Plan of Care and certify that the skilled therapy services above are required to meet the patient?s needs. Physician Signature Date Printed Name and Credentials Clinical Instructor Signature Printed Name and Credentials
--- NOTE | 2017-10-28 12:58 | PT.OTN ---
Current Diagnoses Pain in left shoulder (10/28/17) Physical Therapy Treatment Note PT-OP-A Visit Information Start: 09/26/17 08:12 Freq: Status: Active Protocol: Document 10/28/17 12:19 [facility] (Rec: 10/28/17 12:58 [facility] [id number]) Out-Patient Physical Therapy Visit Information Visit Information Visit Type Treatment Note Visit Note 7 PT visit this year Visit Start Time 12:15 Visit Stop Time 12:55 Total Visit Minutes 40 Visit Number 7 Gcode Number of CADDY PACKER Visits 0 PT-OP-B Current Condition Start: 09/26/17 08:12 Freq: Status: Active Protocol: Document 09/26/17 09:08 [facility] (Rec: 09/27/17 11:06 [facility] [id number]) Current Condition History of Current Condition Onset Date End of Jun 2017 Current Complaints L shoulder pain History of Current Condition Pt reports shoulder pain starting after vacation at the end of Jun. She thinks it may have been caused from pulling her luggage, but is unsure. Pt reports it has improved recently, but still has some pain. Reports she has R knee soreness that has progressed buttock pain that was sharp for a while and R foot feels asleep. Imaging was done and was told it is a pinched nerve. Pt reports the pain has been okay, but numbness is still present. Prior Treatments and Tests X-ray revealing arthrtis per pt. Future Testing and Treatments Planned Possible ortho follow up for RLE. Treatment Goals Patient/Caregiver Goals Dec pain Prior Functional Status Baseline Function- ADL's Independent Baseline Function- Mobility Independent Current Functional Impairments (Reported) Functional Limitations- Other Difficulty sleeping on L shoulder PT-OP-C Subjective Start: 09/26/17 08:12 Freq: Status: Active Protocol: Document 10/28/17 12:19 [facility] (Rec: 10/28/17 12:58 [facility] [id number]) OP-PT Subjective Patient Comments Patient Comments Overall better. PT-OP-J Posture/Palpation/Skin Start: 09/26/17 08:12 Freq: Status: Active Protocol: Document 09/26/17 09:08 [facility] (Rec: 09/26/17 10:27 [facility] [id number]) Posture Evaluation [place] Postural Classification System [place] Postural Classifications Anterior/Posterior Elbow Flexion Test 2 Comments Posture Comments Fwd head shoulders mild Palpation Assessment Location One Palpation Location L shoulder Palpation Findings Soft Tissue Tightness Tenderness Palpation Details UT, pec, LS, infraspinatus, teres PT-OP-K Range of Motion Start: 09/26/17 08:12 Freq: Status: Active Protocol: Document 09/26/17 09:08 [facility] (Rec: 09/26/17 10:27 [facility] [id number]) Shoulder Goniometric Range of Motion Shoulder Measured in Degrees Right Active Testing Position standing Flexion 170 Extension 60 Abduction 180 External Rotation at 90 degrees 90 Abduction Internal Rotation 70 Internal Rotation Behind Back (text) L2 Left Active Testing Position standing Flexion 151 Extension 60 Abduction 170 External Rotation at 90 degrees 70 Abduction Internal Rotation Behind Back (text) L2 PT-OP-L Special Tests Start: 09/26/17 08:12 Freq: Status: Active Protocol: Document 09/26/17 09:08 [facility] (Rec: 09/26/17 10:27 [facility] [id number]) Special Tests Neural Special Tests- Upper Body Other- 1 Test Results radial, median, ulnar n tention tests Neg (B) Comments R abd n tension 145, L 120 Other Special Tests Special Tests AC joint & impingment testing neg (B) & all tests neg on R; L (+) empty can, speeds, O' briens PT-OP-M Strength Start: 09/26/17 08:12 Freq: Status: Active Protocol: Document 09/26/17 09:08 [facility] (Rec: 09/26/17 10:27 [facility] [id number]) Shoulder Strength Shoulder Manual Muscle Testing Right Flexion 4 Good Extension 5 Normal Abduction (C5) 4- Good- External Rotation 4- Good- Internal Rotation 4 Good Comments pain with Abd, feels weak with RUE Left Flexion 4 Good Extension 4+ Good+ Abduction (C5) 4- Good- External Rotation 4- Good- Internal Rotation 5 Normal Comments pain Abd & ER PT-OP-Q Treatments Start: 09/26/17 08:12 Freq: Status: Active Protocol: Document 10/28/17 12:19 [facility] (Rec: 10/28/17 12:58 [facility] [id number]) Therapeutic Exercises Prone Exercises 4 Prone Exercise Name ext Equipment Used 2# Reps/Minutes 10 3 Prone Exercise Name 90/90 ER tball Resistance 1# Reps/Minutes 2x10 2 Prone Exercise Name scaption on tball Resistance 1# Reps/Minutes 2x10 1 Prone Exercise Name Habd on tball Resistance 2# Reps/Minutes 2x10 Sidelying Exercises 2 Sidelying Exercise Name ER Side left Resistance 1# Reps/Minutes 20 1 Sidelying Exercise Name abd Side left Resistance 1# Reps/Minutes 20 Standing Exercises 8 Standing Exercise Name flex Side bilateral Resistance L1 Reps/Minutes 20 7 Standing Exercise Name abd Resistance L1 Reps/Minutes 20 Comments w/mirror 3 Standing Exercise Name flex w/ retraction Side bilateral Resistance L1 Reps/Minutes 20 Manual Therapy Treatment Soft Tissue Mobilization 1 Body Location UT/LS/scalenes & pec Mobilization Type Rolling Intensity/Depth Moderate Body Position Supine Joint Mobilizations 2 Joint GH Direction post, inf & distraction Grade III Body Position Supine 1 Joint AC Direction ventral Grade II Manual Techniques 1 Type flex & abd stretch PT-OP-T Assessment and Plan Start: 09/26/17 08:12 Freq: Status: Active Protocol: Document 10/28/17 12:19 [facility] (Rec: 10/28/17 12:58 [facility] [id number]) Physical Therapy Assessment Goals Three Impairment pain Alf Goal (LTG) 0/10 pain LTG Duration by 11/26/17 Two Impairment Strength Surgical Supervisor Goal (LTG) 5/5 strength BUEs to allow pt to do all normal activities without pain. LTG Duration by 11/26/17 One Impairment ROM Short Term Goal (STG) Pt will have normal ROM without pain to allow participation in daily tasks without pain. STG Duration By 10/28/17 Assessment Summary Assessment Pt able to go through PROM without pain. Improved tolerance to exercises. Physical Therapy Plan Frequency and Duration Frequency of Treatment 2x/Week Duration of Treatment 2 months Plan of Care Start Date 09/26/17 Plan of Care End Date 11/26/17 Next Visit Focus/Plan Next Note Type Treatment Note Next Visit Plan Cont to work on full ROM & abd without pain Please Sign and Return: I have reviewed this Plan of Care and certify that the skilled therapy services above are required to meet the patient?s needs. Physician Signature Date Printed Name and Credentials Clinical Instructor Signature Printed Name and Credentials
--- NOTE | 2017-10-31 11:11 | PT.OTN ---
Current Diagnoses Pain in left shoulder (10/31/17) Physical Therapy Treatment Note PT-OP-A Visit Information Start: 09/26/17 08:12 Freq: Status: Active Protocol: Document 10/31/17 10:29 [facility] (Rec: 10/31/17 11:11 [facility] [id number]) Out-Patient Physical Therapy Visit Information Visit Information Visit Type Treatment Note Visit Note 8 PT visit this year Visit Start Time 10:30 Visit Stop Time 11:10 Total Visit Minutes 40 Visit Number 8 Gcode Number of POSTAL SUPERVISOR Visits 0 PT-OP-B Current Condition Start: 09/26/17 08:12 Freq: Status: Active Protocol: Document 09/26/17 09:08 [facility] (Rec: 09/27/17 11:06 [facility] [id number]) Current Condition History of Current Condition Onset Date End of Jun 2017 Current Complaints L shoulder pain History of Current Condition Pt reports shoulder pain starting after vacation at the end of Jun. She thinks it may have been caused from pulling her luggage, but is unsure. Pt reports it has improved recently, but still has some pain. Reports she has R knee soreness that has progressed buttock pain that was sharp for a while and R foot feels asleep. Imaging was done and was told it is a pinched nerve. Pt reports the pain has been okay, but numbness is still present. Prior Treatments and Tests X-ray revealing arthrtis per pt. Future Testing and Treatments Planned Possible ortho follow up for RLE. Treatment Goals Patient/Caregiver Goals Dec pain Prior Functional Status Baseline Function- ADL's Independent Baseline Function- Mobility Independent Current Functional Impairments (Reported) Functional Limitations- Other Difficulty sleeping on L shoulder PT-OP-C Subjective Start: 09/26/17 08:12 Freq: Status: Active Protocol: Document 10/31/17 10:29 [facility] (Rec: 10/31/17 11:11 [facility] [id number]) OP-PT Subjective Patient Comments Patient Comments cont to improve. compliance w/ HEP. Only lifting covers on L side. PT-OP-J Posture/Palpation/Skin Start: 09/26/17 08:12 Freq: Status: Active Protocol: Document 09/26/17 09:08 [facility] (Rec: 09/26/17 10:27 [facility] [id number]) Posture Evaluation [place] Postural Classification System [place] Postural Classifications Anterior/Posterior Elbow Flexion Test 2 Comments Posture Comments Fwd head shoulders mild Palpation Assessment Location One Palpation Location L shoulder Palpation Findings Soft Tissue Tightness Tenderness Palpation Details UT, pec, LS, infraspinatus, teres PT-OP-K Range of Motion Start: 09/26/17 08:12 Freq: Status: Active Protocol: Document 09/26/17 09:08 [facility] (Rec: 09/26/17 10:27 [facility] [id number]) Shoulder Goniometric Range of Motion Shoulder Measured in Degrees Right Active Testing Position standing Flexion 170 Extension 60 Abduction 180 External Rotation at 90 degrees 90 Abduction Internal Rotation 70 Internal Rotation Behind Back (text) L2 Left Active Testing Position standing Flexion 151 Extension 60 Abduction 170 External Rotation at 90 degrees 70 Abduction Internal Rotation Behind Back (text) L2 PT-OP-L Special Tests Start: 09/26/17 08:12 Freq: Status: Active Protocol: Document 09/26/17 09:08 [facility] (Rec: 09/26/17 10:27 [facility] [id number]) Special Tests Neural Special Tests- Upper Body Other- 1 Test Results radial, median, ulnar n tention tests Neg (B) Comments R abd n tension 145, L 120 Other Special Tests Special Tests AC joint & impingment testing neg (B) & all tests neg on R; L (+) empty can, speeds, O' briens PT-OP-M Strength Start: 09/26/17 08:12 Freq: Status: Active Protocol: Document 09/26/17 09:08 [facility] (Rec: 09/26/17 10:27 [facility] [id number]) Shoulder Strength Shoulder Manual Muscle Testing Right Flexion 4 Good Extension 5 Normal Abduction (C5) 4- Good- External Rotation 4- Good- Internal Rotation 4 Good Comments pain with Abd, feels weak with RUE Left Flexion 4 Good Extension 4+ Good+ Abduction (C5) 4- Good- External Rotation 4- Good- Internal Rotation 5 Normal Comments pain Abd & ER PT-OP-Q Treatments Start: 09/26/17 08:12 Freq: Status: Active Protocol: Document 10/31/17 10:29 [facility] (Rec: 10/31/17 11:11 [facility] [id number]) Therapeutic Exercises Prone Exercises 4 Prone Exercise Name ext Equipment Used 2# Reps/Minutes 20 3 Prone Exercise Name 90/90 ER tball Resistance 1# Reps/Minutes 2x10 2 Prone Exercise Name scaption on tball Resistance 1# Reps/Minutes 2x10 1 Prone Exercise Name Habd on tball Resistance 2# Reps/Minutes 2x10 Sidelying Exercises 2 Sidelying Exercise Name ER Side left Resistance 1# Reps/Minutes 20 1 Sidelying Exercise Name abd Side left Resistance 1# Reps/Minutes 20 Standing Exercises 8 Standing Exercise Name flex Side bilateral Resistance L1 Reps/Minutes 20 7 Standing Exercise Name abd Resistance L1 Reps/Minutes 20 Comments w/mirror 3 Standing Exercise Name flex w/ retraction Side bilateral Resistance L1 Reps/Minutes 20 Manual Therapy Treatment Soft Tissue Mobilization 1 Body Location UT/LS/scalenes & pec Mobilization Type Rolling Intensity/Depth Moderate Body Position Supine Joint Mobilizations 2 Joint GH Direction post, inf & distraction Grade III Body Position Supine 1 Joint AC Direction ventral Grade II PT-OP-T Assessment and Plan Start: 09/26/17 08:12 Freq: Status: Active Protocol: Document 10/31/17 10:29 [facility] (Rec: 10/31/17 11:11 [facility] [id number]) Physical Therapy Assessment Goals Three Impairment pain Corporate Events Director Goal (LTG) 0/10 pain LTG Duration by 11/26/17-worst 2/10 Two Impairment Strength Prison Goal (LTG) 5/5 strength BUEs to allow pt to do all normal activities without pain. LTG Duration by 11/26/17 One Impairment ROM Short Term Goal (STG) Pt will have normal ROM without pain to allow participation in daily tasks without pain. STG Duration achieved Assessment Summary Assessment Cont to improve with ROM & strength. Cont to be most limited in abd. Physical Therapy Plan Frequency and Duration Frequency of Treatment 1x/Week Duration of Treatment 2 months Plan of Care Start Date 09/26/17 Plan of Care End Date 11/26/17 Next Visit Focus/Plan Next Note Type Treatment Note Next Visit Plan Cont to work on full ROM & abd without pain Please Sign and Return: I have reviewed this Plan of Care and certify that the skilled therapy services above are required to meet the patient?s needs. Physician Signature Date Printed Name and Credentials Clinical Instructor Signature Printed Name and Credentials
--- NOTE | 2017-11-07 16:10 | PT.OTN ---
Current Diagnoses Pain in left shoulder (11/07/17) Physical Therapy Treatment Note PT-OP-A Visit Information Start: 09/26/17 08:12 Freq: Status: Active Protocol: Document 11/07/17 15:14 [facility] (Rec: 11/07/17 16:10 [facility] [id number]) Out-Patient Physical Therapy Visit Information Visit Information Visit Type Treatment Note Visit Note 9 PT visit this year Visit Start Time 15:15 Visit Stop Time 15:55 Total Visit Minutes 40 Visit Number 9 Gcode Number of COTTON HEADER Visits 0 PT-OP-B Current Condition Start: 09/26/17 08:12 Freq: Status: Active Protocol: Document 09/26/17 09:08 [facility] (Rec: 09/27/17 11:06 [facility] [id number]) Current Condition History of Current Condition Onset Date End of Jun 2017 Current Complaints L shoulder pain History of Current Condition Pt reports shoulder pain starting after vacation at the end of Jun. She thinks it may have been caused from pulling her luggage, but is unsure. Pt reports it has improved recently, but still has some pain. Reports she has R knee soreness that has progressed buttock pain that was sharp for a while and R foot feels asleep. Imaging was done and was told it is a pinched nerve. Pt reports the pain has been okay, but numbness is still present. Prior Treatments and Tests X-ray revealing arthrtis per pt. Future Testing and Treatments Planned Possible ortho follow up for RLE. Treatment Goals Patient/Caregiver Goals Dec pain Prior Functional Status Baseline Function- ADL's Independent Baseline Function- Mobility Independent Current Functional Impairments (Reported) Functional Limitations- Other Difficulty sleeping on L shoulder PT-OP-C Subjective Start: 09/26/17 08:12 Freq: Status: Active Protocol: Document 11/07/17 15:14 [facility] (Rec: 11/07/17 16:10 [facility] [id number]) OP-PT Subjective Patient Comments Patient Comments Pt reports pain has been less frequent and noticable PT-OP-J Posture/Palpation/Skin Start: 09/26/17 08:12 Freq: Status: Active Protocol: Document 09/26/17 09:08 [facility] (Rec: 09/26/17 10:27 [facility] [id number]) Posture Evaluation [place] Postural Classification System [place] Postural Classifications Anterior/Posterior Elbow Flexion Test 2 Comments Posture Comments Fwd head shoulders mild Palpation Assessment Location One Palpation Location L shoulder Palpation Findings Soft Tissue Tightness Tenderness Palpation Details UT, pec, LS, infraspinatus, teres PT-OP-K Range of Motion Start: 09/26/17 08:12 Freq: Status: Active Protocol: Document 09/26/17 09:08 [facility] (Rec: 09/26/17 10:27 [facility] [id number]) Shoulder Goniometric Range of Motion Shoulder Measured in Degrees Right Active Testing Position standing Flexion 170 Extension 60 Abduction 180 External Rotation at 90 degrees 90 Abduction Internal Rotation 70 Internal Rotation Behind Back (text) L2 Left Active Testing Position standing Flexion 151 Extension 60 Abduction 170 External Rotation at 90 degrees 70 Abduction Internal Rotation Behind Back (text) L2 PT-OP-L Special Tests Start: 09/26/17 08:12 Freq: Status: Active Protocol: Document 09/26/17 09:08 [facility] (Rec: 09/26/17 10:27 [facility] [id number]) Special Tests Neural Special Tests- Upper Body Other- 1 Test Results radial, median, ulnar n tention tests Neg (B) Comments R abd n tension 145, L 120 Other Special Tests Special Tests AC joint & impingment testing neg (B) & all tests neg on R; L (+) empty can, speeds, O' briens PT-OP-M Strength Start: 09/26/17 08:12 Freq: Status: Active Protocol: Document 09/26/17 09:08 [facility] (Rec: 09/26/17 10:27 [facility] [id number]) Shoulder Strength Shoulder Manual Muscle Testing Right Flexion 4 Good Extension 5 Normal Abduction (C5) 4- Good- External Rotation 4- Good- Internal Rotation 4 Good Comments pain with Abd, feels weak with RUE Left Flexion 4 Good Extension 4+ Good+ Abduction (C5) 4- Good- External Rotation 4- Good- Internal Rotation 5 Normal Comments pain Abd & ER PT-OP-Q Treatments Start: 09/26/17 08:12 Freq: Status: Active Protocol: Document 11/07/17 15:14 [facility] (Rec: 11/07/17 16:10 [facility] [id number]) Therapeutic Exercises Prone Exercises 4 Prone Exercise Name ext Equipment Used 2# Reps/Minutes 20 3 Prone Exercise Name 90/90 ER tball Resistance 1# Reps/Minutes 2x10 2 Prone Exercise Name scaption on tball Resistance 1# Reps/Minutes 2x10 1 Prone Exercise Name Habd on tball Resistance 2# Reps/Minutes 2x10 Sidelying Exercises 2 Sidelying Exercise Name ER Side left Resistance 1# Reps/Minutes 20 1 Sidelying Exercise Name abd Side left Resistance 1# Reps/Minutes 20 Standing Exercises 8 Standing Exercise Name flex Side bilateral Resistance L1 Reps/Minutes 20 7 Standing Exercise Name abd Resistance L1 Reps/Minutes 20 Comments w/mirror 3 Standing Exercise Name flex w/ retraction Side bilateral Resistance L1 Reps/Minutes 20 Manual Therapy Treatment Soft Tissue Mobilization 1 Body Location UT/LS/scalenes & pec Mobilization Type Rolling Intensity/Depth Moderate Body Position Supine Joint Mobilizations 2 Joint GH Direction inf & distraction Grade IV Body Position Supine PT-OP-T Assessment and Plan Start: 09/26/17 08:12 Freq: Status: Active Protocol: Document 11/07/17 15:14 [facility] (Rec: 11/07/17 16:10 [facility] [id number]) Physical Therapy Assessment Goals Three Impairment pain Jail Goal (LTG) 0/10 pain LTG Duration by 11/26/17-worst 2/10 Two Impairment Strength Jail Goal (LTG) 5/5 strength BUEs to allow pt to do all normal activities without pain. LTG Duration by 11/26/17 One Impairment ROM Short Term Goal (STG) Pt will have normal ROM without pain to allow participation in daily tasks without pain. STG Duration achieved Assessment Summary Assessment Pt has very minimal limitation at this time. She will likely be able to d/c next session with review of HEP. Physical Therapy Plan Frequency and Duration Frequency of Treatment 1x/Week Duration of Treatment 2 months Plan of Care Start Date 09/26/17 Plan of Care End Date 11/26/17 Next Visit Focus/Plan Next Note Type Discharge Summary Next Visit Plan Progress Abd neuro re edu
--- NOTE | 2017-11-11 09:44 | PT.OTN ---
Current Diagnoses Pain in left shoulder (11/11/17) Physical Therapy Treatment Note PT-OP-A Visit Information Start: 09/26/17 08:12 Freq: Status: Active Protocol: Document 11/11/17 09:05 [facility] (Rec: 11/11/17 09:43 [facility] [id number]) Out-Patient Physical Therapy Visit Information Visit Information Visit Type Treatment Note Visit Note 10 PT visit this year Visit Start Time 09:03 Visit Stop Time 09:41 Total Visit Minutes 38 Visit Number 10 Number of BIT SHAVER Visits 0 PT-OP-B Current Condition Start: 09/26/17 08:12 Freq: Status: Active Protocol: Document 09/26/17 09:08 [facility] (Rec: 09/27/17 11:06 [facility] [id number]) Current Condition History of Current Condition Onset Date End of Jun 2017 Current Complaints L shoulder pain History of Current Condition Pt reports shoulder pain starting after vacation at the end of Jun. She thinks it may have been caused from pulling her luggage, but is unsure. Pt reports it has improved recently, but still has some pain. Reports she has R knee soreness that has progressed buttock pain that was sharp for a while and R foot feels asleep. Imaging was done and was told it is a pinched nerve. Pt reports the pain has been okay, but numbness is still present. Prior Treatments and Tests X-ray revealing arthrtis per pt. Future Testing and Treatments Planned Possible ortho follow up for RLE. Treatment Goals Patient/Caregiver Goals Dec pain Prior Functional Status Baseline Function- ADL's Independent Baseline Function- Mobility Independent Current Functional Impairments (Reported) Functional Limitations- Other Difficulty sleeping on L shoulder PT-OP-C Subjective Start: 09/26/17 08:12 Freq: Status: Active Protocol: Document 11/11/17 09:05 [facility] (Rec: 11/11/17 09:43 [facility] [id number]) OP-PT Subjective Patient Comments Patient Comments Reports rarely getting small times of pain. PT-OP-J Posture/Palpation/Skin Start: 09/26/17 08:12 Freq: Status: Active Protocol: Document 09/26/17 09:08 [facility] (Rec: 09/26/17 10:27 [facility] [id number]) Posture Evaluation Lorena Postural Classification System Lorena Postural Classifications Anterior/Posterior Elbow Flexion Test 2 Comments Posture Comments Fwd head shoulders mild Palpation Assessment Location One Palpation Location L shoulder Palpation Findings Soft Tissue Tightness Tenderness Palpation Details UT, pec, LS, infraspinatus, teres PT-OP-K Range of Motion Start: 09/26/17 08:12 Freq: Status: Active Protocol: Document 09/26/17 09:08 [facility] (Rec: 09/26/17 10:27 [facility] [id number]) Shoulder Goniometric Range of Motion Shoulder Measured in Degrees Right Active Testing Position standing Flexion 170 Extension 60 Abduction 180 External Rotation at 90 degrees 90 Abduction Internal Rotation 70 Internal Rotation Behind Back (text) L2 Left Active Testing Position standing Flexion 151 Extension 60 Abduction 170 External Rotation at 90 degrees 70 Abduction Internal Rotation Behind Back (text) L2 PT-OP-L Special Tests Start: 09/26/17 08:12 Freq: Status: Active Protocol: Document 09/26/17 09:08 [facility] (Rec: 09/26/17 10:27 [facility] [id number]) Special Tests Neural Special Tests- Upper Body Other- 1 Test Results radial, median, ulnar n tention tests Neg (B) Comments R abd n tension 145, L 120 Other Special Tests Special Tests AC joint & impingment testing neg (B) & all tests neg on R; L (+) empty can, speeds, O' briens PT-OP-M Strength Start: 09/26/17 08:12 Freq: Status: Active Protocol: Document 11/11/17 09:43 [facility] (Rec: 11/11/17 09:44 [facility] [id number]) Shoulder Strength Shoulder Manual Muscle Testing Right Flexion 4 Good Extension 5 Normal Abduction (C5) 4 Good External Rotation 4 Good Internal Rotation 4 Good Comments pain with Abd, feels weak with RUE Left Flexion 4+ Good+ Extension 5 Normal Abduction (C5) 4 Good External Rotation 4+ Good+ Internal Rotation 5 Normal Comments pain Abd & ER PT-OP-Q Treatments Start: 09/26/17 08:12 Freq: Status: Active Protocol: Document 11/11/17 09:05 [facility] (Rec: 11/11/17 09:43 [facility] [id number]) Therapeutic Exercises Prone Exercises 4 Prone Exercise Name ext Equipment Used 3# Reps/Minutes 20 3 Prone Exercise Name 90/90 ER tball Resistance 1# Reps/Minutes 2x10 2 Prone Exercise Name scaption on tball Resistance 2# Reps/Minutes 2x10 1 Prone Exercise Name Habd on tball Resistance 2# Reps/Minutes 2x10 Sidelying Exercises 2 Sidelying Exercise Name ER Side left Resistance 1# Reps/Minutes 20 1 Sidelying Exercise Name abd Side left Resistance 1# Reps/Minutes 20 Standing Exercises 8 Standing Exercise Name flex Side bilateral Resistance L1 Reps/Minutes 20 7 Standing Exercise Name abd Resistance L1 Reps/Minutes 20 Comments w/mirror 3 Standing Exercise Name flex w/ retraction Side bilateral Resistance L1 Reps/Minutes 20 Manual Therapy Treatment Soft Tissue Mobilization 1 Body Location UT/LS/scalenes & pec Mobilization Type Rolling Intensity/Depth Moderate Body Position Supine Joint Mobilizations 2 Joint GH Direction inf & distraction Grade IV Body Position Supine Manual Techniques 1 Type flex & abd stretch PT-OP-T Assessment and Plan Start: 09/26/17 08:12 Freq: Status: Active Protocol: Document 11/11/17 09:05 [facility] (Rec: 11/11/17 09:43 [facility] [id number]) Physical Therapy Assessment Goals Three Impairment pain Longterm Goal (LTG) 0/10 pain LTG Duration by 11/26/17-worst 1/10 Two Impairment Strength Longterm Goal (LTG) 5/5 strength BUEs to allow pt to do all normal activities without pain. LTG Duration by 11/26/1772-ktnxusjux-yrua to do activities 4-4+/5 Progress Towards Goals Progress Towards Goals Progressing Toward Goals Assessment Summary Assessment Pt is indep with HEP and is progressing well with strength . Pt has dec strength still but that is likely her baseline as RUE is also dec with strength. Physical Therapy Plan Discharge Physical Therapy Discharge Reasons Goals Met Discharge Comments plateau in progression; indep with HEP
--- NOTE | 2017-11-11 09:44 | PT.OPDS ---
Current Diagnoses Pain in left shoulder (11/11/17) Provider Visit Care Team Role Provider Type Gwendolyn Espinosa PA-C Attending Provider Advanced Practioner Clinician Family Provider Primary Care Provider Specialty: Medical Address: [address] [place] [address], [id number] Email: [email or web address] Number Visit Number 10 Discharge Summary PT-OP-B Current Condition Start: 09/26/17 08:12 Freq: Status: Active Protocol: Document 09/26/17 09:08 [facility] (Rec: 09/27/17 11:06 [facility] [id number]) Current Condition History of Current Condition Onset Date End of Jun 2017 Current Complaints L shoulder pain History of Current Condition Pt reports shoulder pain starting after vacation at the end of Jun. She thinks it may have been caused from pulling her luggage, but is unsure. Pt reports it has improved recently, but still has some pain. Reports she has R knee soreness that has progressed buttock pain that was sharp for a while and R foot feels asleep. Imaging was done and was told it is a pinched nerve. Pt reports the pain has been okay, but numbness is still present. Prior Treatments and Tests X-ray revealing arthrtis per pt. Future Testing and Treatments Planned Possible ortho follow up for RLE. Treatment Goals Patient/Caregiver Goals Dec pain Prior Functional Status Baseline Function- ADL's Independent Baseline Function- Mobility Independent Current Functional Impairments (Reported) Functional Limitations- Other Difficulty sleeping on L shoulder PT-OP-C Subjective Start: 09/26/17 08:12 Freq: Status: Active Protocol: Document 11/11/17 09:05 [facility] (Rec: 11/11/17 09:43 [facility] [id number]) OP-PT Subjective Patient Comments Patient Comments Reports rarely getting small times of pain. PT-OP-J Posture/Palpation/Skin Start: 09/26/17 08:12 Freq: Status: Active Protocol: Document 09/26/17 09:08 [facility] (Rec: 09/26/17 10:27 [facility] [id number]) Posture Evaluation Lorena Postural Classification System Lorena Postural Classifications Anterior/Posterior Elbow Flexion Test 2 Comments Posture Comments Fwd head shoulders mild Palpation Assessment Location One Palpation Location L shoulder Palpation Findings Soft Tissue Tightness Tenderness Palpation Details UT, pec, LS, infraspinatus, teres PT-OP-K Range of Motion Start: 09/26/17 08:12 Freq: Status: Active Protocol: Document 09/26/17 09:08 [facility] (Rec: 09/26/17 10:27 [facility] [id number]) Shoulder Goniometric Range of Motion Shoulder Measured in Degrees Right Active Testing Position standing Flexion 170 Extension 60 Abduction 180 External Rotation at 90 degrees 90 Abduction Internal Rotation 70 Internal Rotation Behind Back (text) L2 Left Active Testing Position standing Flexion 151 Extension 60 Abduction 170 External Rotation at 90 degrees 70 Abduction Internal Rotation Behind Back (text) L2 PT-OP-L Special Tests Start: 09/26/17 08:12 Freq: Status: Active Protocol: Document 09/26/17 09:08 [facility] (Rec: 09/26/17 10:27 [facility] [id number]) Special Tests Neural Special Tests- Upper Body Other- 1 Test Results radial, median, ulnar n tention tests Neg (B) Comments R abd n tension 145, L 120 Other Special Tests Special Tests AC joint & impingment testing neg (B) & all tests neg on R; L (+) empty can, speeds, O' briens PT-OP-M Strength Start: 09/26/17 08:12 Freq: Status: Active Protocol: Document 11/11/17 09:43 [facility] (Rec: 11/11/17 09:44 [facility] [id number]) Shoulder Strength Shoulder Manual Muscle Testing Right Flexion 4 Good Extension 5 Normal Abduction (C5) 4 Good External Rotation 4 Good Internal Rotation 4 Good Comments pain with Abd, feels weak with RUE Left Flexion 4+ Good+ Extension 5 Normal Abduction (C5) 4 Good External Rotation 4+ Good+ Internal Rotation 5 Normal Comments pain Abd & ER PT-OP-T Assessment and Plan Start: 09/26/17 08:12 Freq: Status: Active Protocol: Document 11/11/17 09:05 [facility] (Rec: 11/11/17 09:43 [facility] [id number]) Physical Therapy Assessment Goals Three Impairment pain Utility Maintenance Worker Goal (LTG) 0/10 pain LTG Duration by 11/26/17-worst 1/10 Two Impairment Strength Nursing Home Goal (LTG) 5/5 strength BUEs to allow pt to do all normal activities without pain. LTG Duration by 11/26/1738-spnuiachi-ppow to do activities 4-4+/5 Progress Towards Goals Progress Towards Goals Progressing Toward Goals Assessment Summary Assessment Pt is indep with HEP and is progressing well with strength . Pt has dec strength still but that is likely her baseline as RUE is also dec with strength. Physical Therapy Plan Discharge Physical Therapy Discharge Reasons Goals Met Discharge Comments plateau in progression; indep with HEP
== END 2017-12-24 15:33 ==
LOC: PHYS 09:00
PROVIDERS: Family Provider Physician Assistant; PCP Physician Assistant; Visit Provider Physician Assistant
DX: M25.512 Pain in left shoulder (principal)
CPT/HCPCS: 97110; 97140; 97161

== ENCOUNTER → 2017-12-09 10:43 | Outpatient (CLI) | payer OTHER, MEDICAID, SELFPAY ==
[2017-12-09 11:26] LABS: Alanine Aminotransferase 23 IU/L (9-52); Albumin Globulin Ratio 1.3 (1.0-2.8); Alkaline Phosphatase 79 U/L (38-126); Aspartate Aminotransferase 19 IU/L (14-36); BUN Creatinine Ratio 16.7 (6-22); Bilirubin Total 0.4 mg/dL (0.2-1.3); Blood Urea Nitrogen 15 mg/dL (7-17); Calcium 8.8 mg/dL (8.4-10.2); Carbon Dioxide 32 mmol/L (22-32); Chloride 100 mmol/L (98-107); Cholesterol 180 mg/dL (140-199); Estimated Glomerular Filt Rate > 60.0 mL/min (>60); Glucose 99 mg/dL (80-110); HDL Cholesterol 56 mg/dL (40-60); HEMOLYSIS < 15 (0-50); LDL Cholesterol Calculated 94 mg/dL (<100); Potassium 4.4 mmol/L (3.4-5.1); Sodium 139 mmol/L (137-145); Triglycerides 151 mg/dL (35-150)
== END ==
PROVIDERS: Family Provider Physician Assistant; PCP Physician Assistant; Visit Provider Physician Assistant
DX: E78.5 Hyperlipidemia, unspecified (principal); I10 Essential (primary) hypertension
CPT/HCPCS: 36415; 80053; 80061

== ENCOUNTER → 2017-12-18 10:48 | Outpatient (CLI) | payer OTHER, MEDICAID, SELFPAY | PROVIDERS: Family Provider Physician Assistant; PCP Physician Assistant; Visit Provider Psychiatry & Neurology Neurology | DX: G40.109 Localization-related (focal) (partial) symptomatic epilepsy and epileptic syndromes with simple partial seizures, not intractable, without status epilepticus (principal) | CPT/HCPCS: 36415; 80175 ==

== ENCOUNTER → 2018-03-06 13:58 | Outpatient (CLI) | payer OTHER, MEDICAID, SELFPAY ==
[2018-03-06 15:27] LABS: Hematocrit 41.4 % (36-46)
[2018-03-06 15:44] LABS: HEMOLYSIS < 15 (0-50); Iron 119 ug/dL (37-170)
[2018-03-06 15:55] LABS: Percent Iron Saturation 35 % (15-50); Total Iron Binding Capacity 341 ug/dL (265-497); Transferrin 296 mg/dL (206-381)
== END ==
PROVIDERS: PCP Physician Assistant; Visit Provider Physician Assistant
DX: K62.5 Hemorrhage of anus and rectum (principal)
CPT/HCPCS: 36415; 82728; 83540; 83550; 85014; 85018

== ENCOUNTER → 2018-06-09 12:11 | Outpatient (CLI) | payer MEDICARE, MEDICAID, SELFPAY ==
--- NOTE | 2018-06-09 12:15 | DI.ECHO.S_ITS ---
[facility] +---------+ : : [address] : [place] : : : : [id number] : : : : Phone: [phone] : : [phone] +---------+ Echocardiogram Report + + :Name: THERON PORTER V Study Date: 06/09/2018 Height: 61 in : :[facility] Exam Location: IS Weight: 186 lb : : Gender: Female BSA: 1.8 m2 : :: 1940 Age: 77 yrs BP: 145/77 mmHg: :Reason For Study: LBBB, CM : : Performed By: Joaquin Belcher : :Referring: DIANA LEMA : + + Interpretation Summary The ejection fraction is estimated to be 55-60%. The right ventricle is at the upper limits of normal in size. The left atrium is mildly dilated. The atrial septum is aneurysmal. There is borderline mitral valve prolapse. There is trace mitral regurgitation. The right ventricular systolic pressure is estimated to be at least 25 mmHg based on an estimated right atrial pressure of 3 mm Hg. Left ventricular systolic function has significantly improved compared to the previous exam. Procedure: A two-dimensional transthoracic echocardiogram with color flow and Doppler was performed. The study quality was technically adequate. Comparison is made with the echocardiogram of 01/15/17. The patient was in normal sinus rhythm during the exam. Left Ventricle: The left ventricle is normal in size. There is normal left ventricular wall thickness. The ejection fraction is estimated to be 55-60%. Left ventricular systolic function has significantly improved compared to the previous exam. There are no focal wall motion abnormalities. Septal motion is consistent with conduction abnormality. Right Ventricle: The right ventricle is at the upper limits of normal in size. The right ventricular systolic function is normal. Atria: The left atrium is mildly dilated. Right atrial size is normal. The atrial septum is aneurysmal. The interatrial septum is intact with no evidence for an atrial septal defect. Mitral Valve: The mitral valve is normal in structure and function. There is mild mitral annular calcification. There is borderline mitral valve prolapse. There is trace mitral regurgitation. Aortic Valve: The aortic valve is trileaflet. The aortic valve opens well. There is trace aortic regurgitation. Tricuspid Valve: The tricuspid valve is normal in structure and function. There is trace tricuspid regurgitation. The right ventricular systolic pressure is estimated to be at least 25 mmHg based on an estimated right atrial pressure of 3 mm Hg. Pulmonic Valve: The pulmonic valve is normal in structure and function. There is trace pulmonic regurgitation. Great Vessels: The aortic root is normal size. The dimensions of the ascending aorta are normal. The pulmonary artery is normal size. The IVC is of normal diameter and collapses greater than 50% with a sniff. This suggests a low right atrial pressure of 3 mm Hg. Pericardium/ Pleura There is no pericardial effusion. There is no pleural effusion. MMode/2D Measurements & Calculations LVIDd: 5.4 cm LVOT diam: 2.2 cm LVIDs: 4.6 cm Ao root diam: 3.4 cm FS: 15.9 % asc Aorta Diam: 3.3 cm EPSS: 1.2 cm Ao Arch Diam (Prox Trans): 2.9 cm IVSd: 0.78 cm LVPWd: 0.79 cm LV coles. diameter/BSA (cm/m^2): 3.0 LV sys. diameter/BSA (cm/m^2): 2.5 LA dimension: 3.3 cm RA long axis: 4.7 cm LA A2 area: 20.9 cm2 RA area: 14.7 cm2 LA A4 area: 18.7 cm2 RA vol: 38.7 ml LA length (vol): 4.9 cm RA : 21.1 ml/m2 LA vol: 68.0 ml IVC diam: 1.5 cm LA vol index: 37.1 ml/m2 Doppler Measurements & Calculations Ao V2 max: 145.6 cm/sec LVOT Max Billy: 78.9 cm/sec Ao V2 mean: 114.2 cm/sec LV V1 max P.5 mmHg Ao max P.5 mmHg LV V1 VTI: 14.5 cm Ao mean P.6 mmHg AMAYA(I,D): 1.7 cm2 Ao V2 VTI: 33.6 cm AMAYA(V,D): 2.1 cm2 sev ratio: 0.43 AMAYA indexed to BSA (cm^2/m^2): 0.94 MV E max billy: 45.2 cm/sec TR max billy: 234.6 cm/sec MV A max billy: 76.6 cm/sec TR max P.0 mmHg MV E/A: 0.59 PA V2 max: 76.1 cm/sec Med Peak E' Billy: 3.5 cm/sec PA V2 mean: 52.7 cm/sec E/E' med: 12.9 PA mean P.2 mmHg Lat Peak E' Bilyl: 4.0 cm/sec PA pr(Accel): 44.1 mmHg E/E' lat: 11.3 PA Accel Time: 0.08 sec E/e' average: 12.1 MV dec time: 0.22 sec SV(LVOT): 57.5 ml Reading Physician:03:24 PM
[2018-06-09 12:50] LABS: Alanine Aminotransferase 25 IU/L (9-52); Albumin 4.2 g/dL (3.5-5.0); Albumin Globulin Ratio 1.4 (1.0-2.8); Alkaline Phosphatase 81 U/L (38-126); Aspartate Aminotransferase 21 IU/L (14-36); BUN Creatinine Ratio 23.3 (6-22); Bilirubin Total 0.3 mg/dL (0.2-1.3); Blood Urea Nitrogen 21 mg/dL (7-17); Carbon Dioxide 29 mmol/L (22-32); Chloride 101 mmol/L (98-107); Estimated Glomerular Filt Rate > 60.0 mL/min (>60); Globulin 2.9 g/dL (1.7-4.1); Glucose 100 mg/dL (80-110); HEMOLYSIS < 15 (0-50); Potassium 4.4 mmol/L (3.4-5.1); Sodium 137 mmol/L (137-145); Total Protein 7.1 g/dL (6.3-8.2)
[2018-06-09 16:18] LABS: Creatinine Urine Random 73.8 mg/dL
[2018-06-09 16:32] LABS: Microalbumi Creatinin Ratio Ur 8.1 ug/mg CR (<30); Microalbumin Urine Random < 0.6 mg/dL (0-1.6)
== END ==
PROVIDERS: PCP Physician Assistant; Visit Provider Physician Assistant
DX: I44.7 Left bundle-branch block, unspecified (principal); I42.9 Cardiomyopathy, unspecified; I10 Essential (primary) hypertension
CPT/HCPCS: 36415; 80053; 82043; 82570; 93306

== ENCOUNTER → 2019-07-03 09:22 | Outpatient (CLI) | payer MEDICARE, MEDICAID, SELFPAY ==
[2019-07-03 10:56] LABS: Creatinine Urine Random 53.3 mg/dL
[2019-07-03 11:00] LABS: Microalbumi Creatinin Ratio Ur 22.5 ug/mg CR (<30); Microalbumin Urine Random 1.2 mg/dL (0-1.6)
[2019-07-03 11:09] LABS: Alanine Aminotransferase 14 IU/L (<35); Albumin 4.4 g/dL (3.5-5.0); Albumin Globulin Ratio 1.4 (1.0-2.8); Alkaline Phosphatase 83 U/L (38-126); Aspartate Aminotransferase 23 IU/L (14-36); BUN Creatinine Ratio 24.4 (6-22); Bilirubin Total 0.6 mg/dL (0.2-1.3); Blood Urea Nitrogen 22 mg/dL (7-17); Calcium 9.3 mg/dL (8.4-10.2); Carbon Dioxide 27 mmol/L (22-32); Chloride 97 mmol/L (98-107); Cholesterol 187 mg/dL (140-199); Estimated Glomerular Filt Rate > 60.0 mL/min (>60); Globulin 3.2 g/dL (1.7-4.1); Glucose 104 mg/dL (80-110); HDL Cholesterol 66 mg/dL (40-60); HEMOLYSIS < 15 (0-50); LDL Cholesterol Calculated 104 mg/dL (<100); Potassium 4.6 mmol/L (3.4-5.1); Sodium 135 mmol/L (137-145); Total Protein 7.6 g/dL (6.3-8.2); Triglycerides 87 mg/dL (35-150)
== END ==
PROVIDERS: PCP Physician Assistant; Referring Provider Physician Assistant; Visit Provider Physician Assistant
DX: E78.5 Hyperlipidemia, unspecified (principal); I10 Essential (primary) hypertension
CPT/HCPCS: 36415; 80053; 80061; 82043; 82570

== ENCOUNTER → 2019-07-10 09:42 | Outpatient (CLI) | payer MEDICARE, MEDICAID, SELFPAY ==
[2019-07-10 12:14] LABS: Add Manual Diff / Slide Review NO; Basophils Absolute Auto 100 /uL (0-100); Basophils Percent Auto 1.9 % (0-2); Eosinophils Absolute Auto 200 /uL (0-450); Hematocrit 38.3 % (36-46); Hemoglobin 13.3 g/dL (12.0-16.0); Lymphocytes Absolute Auto 1400 /uL (1100-4500); Lymphocytes Percent Auto 30.2 % (25-40); Mean Corpuscular HGB Conc 34.8 % (30-36); Mean Corpuscular Hemoglobin 32.9 PG (26-34); Mean Corpuscular Volume 94.6 fL (80-100); Monocytes Absolute Auto 500 /uL (0-900); Monocytes Percent Auto 9.9 % (3-14); Neutrophils Absolute Auto 2500 /uL (1500-7000); Platelet Count 283 X10^3/uL (150-400); Red Blood Cell Count 4.04 X10^6/uL (4.0-5.2); Red Cell Distribution Width 12.3 % (11.6-14.8); White Blood Cell Count 4.7 X10^3/uL (4.5-11.0)
[2019-07-10 12:51] LABS: Alanine Aminotransferase 17 IU/L (<35); Albumin 4.2 g/dL (3.5-5.0); Albumin Globulin Ratio 1.3 (1.0-2.8); Alkaline Phosphatase 75 U/L (38-126); Aspartate Aminotransferase 25 IU/L (14-36); Bilirubin Total 0.3 mg/dL (0.2-1.3); Blood Urea Nitrogen 30 mg/dL (7-17); Calcium 9.2 mg/dL (8.4-10.2); Carbon Dioxide 25 mmol/L (22-32); Chloride 100 mmol/L (98-107); Estimated Glomerular Filt Rate 53.8 mL/min (>60); Globulin 3.3 g/dL (1.7-4.1); Glucose 111 mg/dL (80-110); HEMOLYSIS < 15 (0-50); Potassium 4.1 mmol/L (3.4-5.1); Sodium 136 mmol/L (137-145); Total Protein 7.5 g/dL (6.3-8.2)
[2019-07-13 09:51] LABS: Lamotrigine Lamictal 3.6 mcg/mL (4.0-18.0)
[2019-07-14 21:00] LABS: 1 25 Dihydroxy Vitamin D 32 pg/mL (18-72)
== END ==
PROVIDERS: PCP Physician Assistant; Referring Provider Psychiatry & Neurology Neurology; Visit Provider Psychiatry & Neurology Neurology
DX: Z51.81 Encounter for therapeutic drug level monitoring (principal); E55.9 Vitamin D deficiency, unspecified; G40.109 Localization-related (focal) (partial) symptomatic epilepsy and epileptic syndromes with simple partial seizures, not intractable, without status epilepticus
CPT/HCPCS: 36415; 80053; 80175; 82652; 85025

== ENCOUNTER → 2020-04-12 09:29 | Outpatient (CLI) | payer MEDICARE, MEDICAID, SELFPAY ==
[2020-04-12 10:34] LABS: Hematocrit 40.4 % (36-46); Hemoglobin 13.6 g/dL (12.0-16.0); Mean Corpuscular HGB Conc 33.7 % (30-36); Mean Corpuscular Hemoglobin 32.1 PG (26-34); Mean Corpuscular Volume 95.1 fL (80-100); Platelet Count 272 X10^3/uL (150-400); Red Blood Cell Count 4.26 X10^6/uL (4.0-5.2); Red Cell Distribution Width 12.7 % (11.6-14.8); White Blood Cell Count 4.4 X10^3/uL (4.5-11.0)
[2020-04-12 10:49] LABS: Alanine Aminotransferase 17 IU/L (<35); Albumin Globulin Ratio 1.3 (1.0-2.8); Alkaline Phosphatase 86 U/L (38-126); Aspartate Aminotransferase 22 IU/L (14-36); BUN Creatinine Ratio 22.6 (6-22); Bilirubin Total 0.6 mg/dL (0.2-1.3); Blood Urea Nitrogen 19 mg/dL (7-17); Calcium 9.2 mg/dL (8.4-10.2); Carbon Dioxide 32 mmol/L (22-32); Chloride 99 mmol/L (98-107); Cholesterol 190 mg/dL (140-199); Estimated Glomerular Filt Rate > 60.0 mL/min (>60); Glucose 101 mg/dL (80-110); HDL Cholesterol 74 mg/dL (40-60); HEMOLYSIS < 15 (0-50); LDL Cholesterol Calculated 92 mg/dL (<100); Potassium 4.2 mmol/L (3.4-5.1); Sodium 133 mmol/L (137-145); Triglycerides 120 mg/dL (35-150)
[2020-04-12 11:05] LABS: Vitamin D 25 Hydroxy (D3) 33.7 ng/mL (30.0-100.0)
== END ==
PROVIDERS: Nurse Practitioner Family; Referring Provider Family Medicine; Visit Provider Family Medicine
DX: M85.80 Other specified disorders of bone density and structure, unspecified site (principal); E78.5 Hyperlipidemia, unspecified; I10 Essential (primary) hypertension
CPT/HCPCS: 36415; 80053; 80061; 82306; 85027

== ENCOUNTER → 2020-08-26 14:37 | Outpatient (CLI) | payer MEDICARE, SELFPAY ==
[2020-08-26] MEDS: COVID-19 VACC, Ad26(JANSSEN)/PF 0.5 ML IM (14:46)
== END ==
PROVIDERS: PCP Nurse Practitioner Family; Visit Provider Internal Medicine
DX: Z23 Encounter for immunization (principal)
CPT/HCPCS: 0031A; 91303

== ENCOUNTER → 2020-11-01 14:31 | Outpatient (CLI) | payer MEDICARE, SELFPAY ==
[2020-11-01 15:33] LABS: Alanine Aminotransferase 14 IU/L (<35); Albumin 4.2 g/dL (3.5-5.0); Albumin Globulin Ratio 1.4 (1.0-2.8); Alkaline Phosphatase 88 U/L (38-126); Aspartate Aminotransferase 24 IU/L (14-36); BUN Creatinine Ratio 18.9 (6-22); Bilirubin Total 0.5 mg/dL (0.2-1.3); Blood Urea Nitrogen 17 mg/dL (7-17); Calcium 9.1 mg/dL (8.4-10.2); Carbon Dioxide 25 mmol/L (22-32); Chloride 99 mmol/L (98-107); Estimated Glomerular Filt Rate > 60.0 mL/min (>60); Globulin 3.1 g/dL (1.7-4.1); Glucose 104 mg/dL (80-110); HEMOLYSIS < 15 (0-50); Potassium 3.5 mmol/L (3.4-5.1); Sodium 132 mmol/L (137-145); Total Protein 7.3 g/dL (6.3-8.2)
[2020-11-01 16:34] LABS: Creatinine Urine Random 93.3 mg/dL
[2020-11-01 16:39] LABS: Microalbumi Creatinin Ratio Ur 12.8 ug/mg CR (<30); Microalbumin Urine Random 1.2 mg/dL (0-1.6)
[2020-11-01 16:43] LABS: Vitamin D 25 Hydroxy (D3) 53.7 ng/mL (30.0-100.0)
== END ==
PROVIDERS: PCP Nurse Practitioner Family; Referring Provider Nurse Practitioner Family; Visit Provider Nurse Practitioner Family
DX: M85.80 Other specified disorders of bone density and structure, unspecified site (principal); I10 Essential (primary) hypertension
CPT/HCPCS: 36415; 80053; 82043; 82306; 82570

== ENCOUNTER → 2021-11-03 09:44 | Outpatient (CLI) | payer MEDICARE, MEDICAID, SELFPAY ==
[2021-11-03 10:32] LABS: Hematocrit 38.8 % (36-46); Hemoglobin 13.4 g/dL (12.0-16.0); Mean Corpuscular HGB Conc 34.5 % (30-36); Mean Corpuscular Hemoglobin 32.1 PG (26-34); Platelet Count 266 X10^3/uL (150-400); Red Blood Cell Count 4.17 X10^6/uL (4.0-5.2); Red Cell Distribution Width 12.4 % (11.6-14.8); White Blood Cell Count 4.6 X10^3/uL (4.5-11.0)
[2021-11-03 11:59] LABS: Creatinine Urine Random 42.8 mg/dL; Microalbumi Creatinin Ratio Ur 18.6 ug/mg CR (<30); Microalbumin Urine Random 0.8 mg/dL (0-1.6)
[2021-11-03 12:15] LABS: Chloride 98 mmol/L (98-107); Potassium 4.5 mmol/L (3.4-5.1); Sodium 134 mmol/L (137-145)
[2021-11-03 12:16] LABS: BUN Creatinine Ratio 27.7 (6-22); Bilirubin Total 0.6 mg/dL (0.2-1.3); Blood Urea Nitrogen 23 mg/dL (7-17); Calcium 9.4 mg/dL (8.4-10.2); Carbon Dioxide 28 mmol/L (22-32); Estimated Glomerular Filt Rate > 60 mL/min (>60); Glucose 97 mg/dL (80-110)
[2021-11-03 12:17] LABS: Alanine Aminotransferase 16 IU/L (<35); Albumin 4.1 g/dL (3.5-5.0); Albumin Globulin Ratio 1.3 (1.0-2.8); Alkaline Phosphatase 71 U/L (38-126); Aspartate Aminotransferase 23 IU/L (14-36); Globulin 3.1 g/dL (1.7-4.1); Total Protein 7.2 g/dL (6.3-8.2)
[2021-11-03 12:18] LABS: Cholesterol 201 mg/dL (140-199); HDL Cholesterol 70 mg/dL (40-60); HEMOLYSIS 19 (0-50); LDL Cholesterol Calculated 112 mg/dL (<100); Triglycerides 97 mg/dL (35-150)
[2021-11-04 03:55] LABS: Thyroid Stimulating Hormone 4.66 uIU/mL (0.47-4.68)
[2021-11-05 15:38] LABS: Free T3, Triiodothyronine Free 3.65 pg/mL (2.77-5.27); Free T4, Direct Thyroxine 1.22 ng/dL (0.78-2.19)
[2021-11-06 16:33] LABS: Hep C Virus Ab w/Reflex Quant NEGATIVE s/c (NEGATIVE)
== END ==
PROVIDERS: PCP Nurse Practitioner; Referring Provider Nurse Practitioner; Visit Provider Nurse Practitioner
DX: Z00.00 Encounter for general adult medical examination without abnormal findings (principal); E78.5 Hyperlipidemia, unspecified; F33.42 Major depressive disorder, recurrent, in full remission; G40.909 Epilepsy, unspecified, not intractable, without status epilepticus; I10 Essential (primary) hypertension; Z11.59 Encounter for screening for other viral diseases
CPT/HCPCS: 36415; 80053; 80061; 82043; 82570; 84439; 84443; 84481; 85027; 86803

== ENCOUNTER → 2021-11-06 09:13 | Outpatient (CLI) | payer MEDICARE, MEDICAID, SELFPAY ==
[2021-11-06 10:57] LABS: Cholesterol 181 mg/dL (140-199); HDL Cholesterol 70 mg/dL (40-60); LDL Cholesterol Calculated 97 mg/dL (<100); Triglycerides 70 mg/dL (35-150)
== END ==
PROVIDERS: PCP Nurse Practitioner; Referring Provider Nurse Practitioner; Visit Provider Nurse Practitioner
DX: E78.5 Hyperlipidemia, unspecified (principal)
CPT/HCPCS: 36415; 80061

== ENCOUNTER → 2022-08-13 15:12 | Outpatient (CLI) | payer MEDICARE, MEDICAID, SELFPAY ==
[2022-08-13 15:52] LABS: Hematocrit 38.6 % (36-46); Hemoglobin 13.5 g/dL (12.0-16.0); Mean Corpuscular HGB Conc 35.1 % (30-36); Mean Corpuscular Hemoglobin 32.7 PG (26-34); Mean Corpuscular Volume 93.3 fL (80-100); Platelet Count 268 X10^3/uL (150-400); Red Blood Cell Count 4.13 X10^6/uL (4.0-5.2); Red Cell Distribution Width 12.4 % (11.6-14.8); White Blood Cell Count 5.5 X10^3/uL (4.5-11.0)
[2022-08-13 16:43] LABS: Neutrophils Absolute Manual 2915 /uL (3000-5900); Total Cells Counted 100
[2022-08-13 16:44] LABS: RBC Morphology Normal Morphology
[2022-08-13 16:53] LABS: Alanine Aminotransferase 24 IU/L (<35); Albumin 4.2 g/dL (3.5-5.0); Albumin Globulin Ratio 1.3 (1.0-2.8); Alkaline Phosphatase 72 U/L (38-126); Aspartate Aminotransferase 28 IU/L (14-36); Bilirubin Total 0.5 mg/dL (0.2-1.3); Blood Urea Nitrogen 18 mg/dL (7-17); Calcium 9.3 mg/dL (8.4-10.2); Carbon Dioxide 28 mmol/L (22-32); Chloride 95 mmol/L (98-107); Estimated Glomerular Filt Rate > 60 mL/min (>60); Globulin 3.3 g/dL (1.7-4.1); Glucose 99 mg/dL (80-110); HEMOLYSIS < 15 (0-50); Sodium 132 mmol/L (137-145); Total Protein 7.5 g/dL (6.3-8.2)
[2022-08-14 05:15] LABS: Free T3, Triiodothyronine Free 3.64 pg/mL (2.77-5.27); Free T4, Direct Thyroxine 1.21 ng/dL (0.78-2.19)
[2022-08-14 05:29] LABS: Thyroid Stimulating Hormone 3.88 uIU/mL (0.47-4.68)
== END ==
PROVIDERS: PCP Nurse Practitioner; Referring Provider Nurse Practitioner; Visit Provider Nurse Practitioner
DX: Z01.818 Encounter for other preprocedural examination (principal)
CPT/HCPCS: 36415; 80053; 84439; 84443; 84481; 85025

== ENCOUNTER → 2022-08-13 16:33 | Outpatient (CLI) | payer MEDICARE, MEDICAID, SELFPAY ==
--- NOTE | 2022-08-13 16:39 | DI.CT.S_ITS ---
PROCEDURE: CT ANGIO HEAD INDICATIONS: Cognitive impairment and right eye loss of vision transiently TECHNIQUE: Precontrast 4.5 mm thick angled axial sections acquired from the foramen magnum to the vertex. After the administration of intravenous contrast, 1 mm thick sections acquired through the [place] of [place]. Postcontrast 4.5 mm thick sections then re-acquired from the foramen magnum to the vertex. 10 mm thick chryvzo-kjpeejpro-lrurpxgdmy (MIP) reformats were acquired of the central intracranial vasculature. For radiation dose reduction, the following was used: automated exposure control, adjustment of mA and/or kV according to patient size. COMPARISON: [facility], MR, BRAIN WITH AND WITHOUT CONTRAS, 08/10/2011, 11:01. [facility], CT, HEAD WITH AND WITHOUT CONTRAST, 07/25/2011, 13:17. FINDINGS: Image quality: Mild streak artifact can be seen through the skull base. Anterior circulation: Intracranial internal carotid arteries are normal in size and flow. There is a diminutive left A1 segment, with a corresponding robust right A1 segment. This is considered to be a normal developmental variant of the [place] of [place], of typically no clinical consequence. The flow within the paired anterior cerebral arteries is otherwise normal and symmetric. The flow within the middle cerebral arteries is normal and symmetric. The anterior communicating artery is seen. No aneurysms are seen. Posterior circulation: Visualized portions of the vertebral arteries demonstrate normal caliber, and join to form a normal appearing basilar artery. Flow within the posterior cerebral arteries is normal and symmetric. No aneurysms are seen. CSF spaces: Ventricles are normal in size and shape. Basal cisterns are patent. No extra-axial fluid collections. Brain: No midline shift. No intracranial bleeds or masses. Naqvi-white matter interface appears intact. Skull and face: Calvarium and facial bones appear intact, without suspicious lesions. Incidental note is made of hyperostosis frontalis. This is not considered to be pathologic in a woman of this age. Sinuses: Visualized sinuses and mastoids are clear. IMPRESSION: No imaging explanation is found for this patient's presenting symptoms. Dictated by: Ryan Chow M.D. on 08/13/2022 at 17:06 Approved by: Ryan Chow M.D. on 08/13/2022 at 17:09
== END ==
PROVIDERS: PCP Nurse Practitioner; Referring Provider Nurse Practitioner; Visit Provider Nurse Practitioner
DX: H54.7 Unspecified visual loss (principal); R41.89 Other symptoms and signs involving cognitive functions and awareness; Z01.818 Encounter for other preprocedural examination
CPT/HCPCS: 36415; 70496; 80053; 84439; 84443; 84481; 85025; Q9967

== ENCOUNTER → 2022-08-14 10:32 | Outpatient (CLI) | payer MEDICARE, MEDICAID, SELFPAY | PROVIDERS: PCP Nurse Practitioner; Referring Provider Nurse Practitioner; Visit Provider Nurse Practitioner | DX: Z01.818 Encounter for other preprocedural examination (principal) | CPT/HCPCS: 93005 ==

== ENCOUNTER → 2022-08-15 06:37 | Outpatient (CLI) | payer MEDICARE, MEDICAID, SELFPAY ==
--- NOTE | 2022-08-15 06:38 | DI.ECHO.S_ITS ---
[place]---------+ [facility] +---------+ : : [address] : [address] [place] : : : : [id number] : : : : Phone: [phone] : : [phone] +---------+ Echocardiogram Report + + :Name: THERON PORTER V Study Date: 08/15/2022 Height: 61 in : :[facility] ReadingLocation: Weight: 176 lb : : Gender: Female BSA: 1.8 m2 : :: 1940 Age: 82 yrs BP: 145/66 mmHg: :Reason For Study: PRE OP EXAM : :Ordering Physician: SANJAY, : :NAVEEN Performed By: Macey Camargo : :Referring: NAVEEN GRACE : + + Interpretation Summary 1) Normal left ventricular size and thickness with mildly to moderately reduced systolic function (EF 40-45%). 2) Normal right ventricular size and function. 3) There is mild to moderate mitral regurgitation. 4) Compared to the Echo done 06/09/2018, LVEF has decreased from 55-60% to 40- 45% on this study. Procedure: A two-dimensional transthoracic echocardiogram with color flow Doppler was performed. The study quality was technically adequate. Comparison is made with the echocardiogram of 06/09/2018. The heart rate ranged between 60-85 bpm during the study. Left Ventricle: The left ventricle is normal in size and wall thickness. The ejection fraction is estimated to be 40-45%. Left ventricular global longitudinal strain average is -14.3%. Septal motion is consistent with conduction abnormality. There is mild global hypokinesis of the left ventricle. Diastolic function could not be accurately assessed due to unobtainable data. Right Ventricle: The right ventricle is normal in size and function. Atria: The left atrium is mildly dilated. Right atrial size is normal. The atrial septum is aneurysmal. Mitral Valve: The mitral valve leaflets appear borderline thickened, but open well. There is mild to moderate mitral regurgitation. Aortic Valve: The aortic valve is trileaflet. The aortic valve opens well. There is no aortic valve stenosis. No aortic regurgitation is present. Tricuspid Valve: The tricuspid valve is normal in structure and function. There is mild tricuspid regurgitation. The right ventricular systolic pressure is estimated to be at least 18 mmHg based on an estimated right atrial pressure of 3 mm Hg. Pulmonic Valve: The pulmonic valve leaflets are thin and pliable; valve motion is normal. There is trace pulmonic regurgitation. Great Vessels: The aortic root is normal size. The dimensions of the ascending aorta are normal. The IVC is of normal diameter and collapses greater than 50% with a sniff. This suggests a low right atrial pressure of 3 mm Hg. Pericardium/ Pleura There is no pericardial effusion. There is no pleural effusion. MMode/2D Measurements & Calculations LVIDd: 5.2 cm LVOT diam: 2.1 cm LVIDs: 4.2 cm Ao root diam: 3.3 cm FS: 20.0 % asc Aorta Diam: 3.4 cm EPSS: 1.4 cm Ao Arch Diam (Prox Trans): 3.1 cm IVSd: 0.90 cm LVPWd: 0.67 cm LV coles. diameter/BSA (cm/m^2): 2.9 LV sys. diameter/BSA (cm/m^2): 2.3 LA A2 area: 22.5 cm2 RA long axis: 4.5 cm LA A4 area: 17.5 cm2 RA area: 12.2 cm2 LA length (vol): 5.3 cm RA vol: 28.2 ml LA vol: 63.3 ml RA : 15.7 ml/m2 LA vol index: 35.4 ml/m2 IVC diam: 1.4 cm RVD1 (basal): 3.9 cm RVD2 (mid): 3.3 cm TAPSE: 2.2 cm Doppler Measurements & Calculations Ao V2 max: 148.3 cm/sec LVOT Max Billy: 68.4 cm/sec Ao V2 mean: 106.4 cm/sec LV V1 max P.9 mmHg Ao max P.8 mmHg LV V1 VTI: 15.0 cm Ao mean P.1 mmHg AMAYA(I,D): 1.6 cm2 Ao V2 VTI: 31.6 cm AMAYA(V,D): 1.6 cm2 sev ratio: 0.48 AMAYA indexed to BSA (cm^2/m^2): 0.91 MV E max billy: 101.3 cm/sec TR max billy: 192.6 cm/sec MV A max billy: 0.55 cm/sec TR max P.8 mmHg MV E/A: 185.6 PA V2 max: 83.3 cm/sec Med Peak E' Billy: 3.8 cm/sec PA V2 mean: 59.9 cm/sec E/E' med: 26.8 PA mean P.6 mmHg Lat Peak E' Billy: 6.0 cm/sec PA pr(Accel): 36.2 mmHg E/E' lat: 16.9 E/e' average: 21.9 MV dec time: 0.13 sec SV(OT): 51.6 ml Reading Physician:09:37 AM
== END ==
PROVIDERS: PCP Nurse Practitioner; Referring Provider Nurse Practitioner; Visit Provider Nurse Practitioner
DX: Z01.818 Encounter for other preprocedural examination (principal); I08.1 Rheumatic disorders of both mitral and tricuspid valves; R41.89 Other symptoms and signs involving cognitive functions and awareness; H54.7 Unspecified visual loss
CPT/HCPCS: 93306

== ENCOUNTER → 2022-12-26 10:09 | Outpatient (CLI) | payer MEDICARE, MEDICAID, SELFPAY ==
--- NOTE | 2022-12-26 10:10 | DI.RAD.S_ITS ---
Bone Density Report Name: THERON PORTER V Age: 82 Sex: Female Ethnicity: White Date of : 1940 Indication: postmenopausal; screening for osteoporosis; Referring Provider: NAVEEN GRACE Study: Bone densitometry was performed. Exam Date: December 26, 2022 Accession number: [id number] Bone Density: Region BMD T-score Z-score Classification AP Spine(L2, L3, L4) 1.054 -0.2 2.6 Normal Femoral Neck (Left) 0.614 -2.1 0.2 Osteopenia Total Hip (Left) 0.804 -1.1 1.0 Osteopenia Femoral Neck (Right) 0.643 -1.9 0.5 Osteopenia Total Hip (Right) 0.767 -1.4 0.7 Osteopenia Total Hip Mean 0.786 -1.3 0.9 Osteopenia World Health Organization criteria for BMD impression classify patients as: Normal (T-score at or above -1.0), Osteopenia (T-score between -1.0 and -2.5), or Osteoporosis (T-score at or below -2.5). 10-year Fracture Risk(1): Major Osteoporotic Fracture 15% Hip Fracture 4.4% Reported Risk Factors: [place] (), Neck BMD=0.614, BMI=32.3 (1) FRAX(R) Version 3.08. Fracture probability calculated for an untreated patient. Fracture probability may be lower if the patient has received treatment. Impression: The patient has low bone mass, based on the Left Femoral Neck T-score. The patient has an estimated ten-year risk of hip fracture of 4.4% and an estimated ten-year risk of major fracture of 15%, based on the WHO FRAX algorithm. Discussion: BONE DENSITY IS LOW AT ONE OR MORE SKELETAL SITES. THE PATIENT'S BMD AND CLINICAL RISK FACTORS CONTRIBUTE TO THIS PATIENT'S INCREASED RISK OF FRACTURE. This patient's lowest T-score is low at one or more skeletal sites. It meets the World Health Organization's (WHO) criteria for low bone mass (T-score between -1.0 and -2.5). The patient's 10-year risk of hip fracture as calculated by FRAX exceeds the threshold where pharmacological therapy is recommended by the National Osteoporosis Foundation (NOF). However, all treatment decisions require clinical judgment and consideration of individual patient factors, including patient preferences, comorbidities, previous drug use, risk factors not captured in the FRAX model (e.g., frailty, falls, vitamin D deficiency, increased bone turnover, interval significant decline in bone density) and possible under or overestimation of fracture risk by FRAX. The patient should follow a healthful lifestyle (good nutrition with adequate calcium and vitamin D, and appropriate weight-bearing exercise). Follow-Up: Consider a repeat BMD and Vertebral Fracture Assessment (VFA) exam in 2 years or sooner if medically necessary, to reassess this patient's status. Reported by: MARCOS TOLENTINO M.D on 12/26/2022 10:40:00 AM.
[2022-12-26 11:57] LABS: Creatinine Urine Random 82.6 mg/dL
[2022-12-26 12:01] LABS: Microalbumi Creatinin Ratio Ur 12.1 ug/mg CR (<30)
[2022-12-26 12:04] LABS: Alanine Aminotransferase 22 IU/L (<35); Albumin 3.7 g/dL (3.5-5.0); Albumin Globulin Ratio 1.2 (1.0-2.8); Alkaline Phosphatase 68 U/L (38-126); Aspartate Aminotransferase 30 IU/L (14-36); BUN Creatinine Ratio 22.4 (6-22); Bilirubin Total 0.7 mg/dL (0.2-1.3); Blood Urea Nitrogen 17 mg/dL (7-17); Calcium 8.4 mg/dL (8.4-10.2); Carbon Dioxide 29 mmol/L (22-32); Chloride 99 mmol/L (98-107); Cholesterol 169 mg/dL (140-199); Estimated Glomerular Filt Rate > 60 mL/min (>60); Glucose 95 mg/dL (80-110); HDL Cholesterol 54 mg/dL (40-60); HEMOLYSIS < 15 (0-50); LDL Cholesterol Calculated 94 mg/dL (<100); Potassium 3.9 mmol/L (3.4-5.1); Sodium 133 mmol/L (137-145); Total Protein 6.7 g/dL (6.3-8.2); Triglycerides 107 mg/dL (35-150)
== END ==
PROVIDERS: PCP Nurse Practitioner; Referring Provider Nurse Practitioner; Visit Provider Nurse Practitioner
DX: M85.852 Other specified disorders of bone density and structure, left thigh (principal); E78.5 Hyperlipidemia, unspecified; E87.1 Hypo-osmolality and hyponatremia; Z13.820 Encounter for screening for osteoporosis; Z78.0 Asymptomatic menopausal state
CPT/HCPCS: 36415; 77080; 80053; 80061; 82043; 82570

== ENCOUNTER → 2024-01-14 09:33 | Outpatient (CLI) | payer MEDICARE, MEDICAID, SELFPAY ==
[2024-01-14 11:23] LABS: Alanine Aminotransferase 19 IU/L (<35); Albumin Globulin Ratio 1.4 (1.0-2.8); Alkaline Phosphatase 84 U/L (38-126); Aspartate Aminotransferase 26 IU/L (14-36); Bilirubin Total 0.6 mg/dL (0.2-1.3); Blood Urea Nitrogen 20 mg/dL (7-17); Carbon Dioxide 27 mmol/L (22-32); Chloride 101 mmol/L (98-107); Cholesterol 179 mg/dL (140-199); Estimated Glomerular Filt Rate > 60 mL/min (>60); Globulin 2.8 g/dL (1.7-4.1); Glucose 102 mg/dL (80-110); HDL Cholesterol 68 mg/dL (40-60); HEMOLYSIS < 15 (0-50); LDL Cholesterol Calculated 92 mg/dL (<100); Potassium 4.4 mmol/L (3.4-5.1); Sodium 135 mmol/L (137-145); Total Protein 6.8 g/dL (6.3-8.2); Triglycerides 96 mg/dL (35-150)
[2024-01-14 11:50] LABS: Free T3, Triiodothyronine Free 3.31 pg/mL (2.77-5.27); Free T4, Direct Thyroxine 0.89 ng/dL (0.78-2.19)
== END ==
LOC: LAB 09:34
PROVIDERS: PCP Nurse Practitioner; Referring Provider Nurse Practitioner; Visit Provider Nurse Practitioner
DX: I10 Essential (primary) hypertension (principal); F41.9 Anxiety disorder, unspecified; E78.5 Hyperlipidemia, unspecified; M85.80 Other specified disorders of bone density and structure, unspecified site; F32.9 Major depressive disorder, single episode, unspecified; Z79.899 Other long term (current) drug therapy
CPT/HCPCS: 36415; 80053; 80061; 84439; 84443; 84481

== ENCOUNTER → 2024-12-03 10:24 | Outpatient (CLI) | payer MEDICARE, MEDICAID, SELFPAY ==
[2024-12-03 12:20] LABS: Blood Urea Nitrogen 21 mg/dL (7-17); Calcium 8.9 mg/dL (8.4-10.2); Carbon Dioxide 27 mmol/L (22-32); Chloride 98 mmol/L (98-107); Cholesterol 199 mg/dL (140-199); Estimated Glomerular Filt Rate 58 mL/min (>60); Glucose 97 mg/dL (70-99); HEMOLYSIS < 15 (0-50); Sodium 132 mmol/L (137-145); Triglycerides 81 mg/dL (35-150)
[2024-12-03 12:21] LABS: HDL Cholesterol 75 mg/dL (40-60); Potassium 4.8 mmol/L (3.4-5.1)
== END ==
PROVIDERS: PCP Nurse Practitioner Family; Referring Provider Nurse Practitioner Family; Visit Provider Nurse Practitioner Family
DX: I10 Essential (primary) hypertension (principal); E78.5 Hyperlipidemia, unspecified; E66.9 Obesity, unspecified
CPT/HCPCS: 36415; 80048; 80061